=== PATIENT | male | born 1950 | race Caucasian/White ===

== ENCOUNTER 2018-04-09 06:18 | Inpatient (IN) | payer MEDICARE, OTHER, SELFPAY ==
[2018-04-05 13:47] VITALS: BMI 30.2
[2018-04-09] VITALS (16 sets, daily range): BP systolic 91–135; BP diastolic 54–86; PULSE 67–90; RESP 10–20; TEMP 36–36.8; O2SAT 94–100; BMI 30.2
[2018-04-09] MEDS: LACTATED RINGERS 1,000 ML 42 ML IV ×2 (07:03→10:00)
--- NOTE | 2018-04-09 07:12 | PC.NURSE ---
Day shift: Pt is not on AC unit at this time.
--- NOTE | 2018-04-09 07:30 | PM.PREOP ---
Pre-operative Note Interval Note History & Physical reviewed/Exam performed by Physician: Yes Changes to H&P: No
[2018-04-09] MEDS: CEFAZOLIN 2 GM/100 ML FROZ.PIGGY IV ×2 (07:51→16:30)
--- NOTE | 2018-04-09 08:25 | SUR.OPER ---
Right lateral on padded OR table. Head on pillow, gel axillary roll, pillow to support left arm. Legs flexed, pillows between legs, gel pad under down leg and ankle. Multiple passes of 3 inch cloth tape across shoulder, hip, upper and lower legs to secure patient on OR table.
[2018-04-09] MEDS: VANCOMYCIN 1,000 MG VIAL 1000 MG TOP (08:38)
[2018-04-09] MEDS: SODIUM CHLORIDE 0.9% 1,000 ML, GENTAMICIN 80 MG IRR ×2 (08:39→08:41)
[2018-04-09] MEDS: BUPIVACAINE 0.5% (PF) 4 ML, MORPHINE-PF 4 MG, BUTORPHANOL 1 MG, fentaNYL 100 MCG INJ (08:40)
[2018-04-09] MEDS: ACETAMINOPHEN IV 1,000 MG/100 ML VIAL 400 MG IV (09:10)
--- NOTE | 2018-04-09 09:34 | PM.OP.1 ---
Operative Date/Time/Diagnoses Date of procedure: 04/09/18 Time of procedure: 09:34 Pre-op diagnosis: Lumbar stenosis with radiculopathy History of lumbar laminectomy Post-op diagnosis: same Procedure & Clinicians Procedure: L1-2, L2-3, L3-4 anterior fusion with cages Same procedure as scheduled: Yes Indications: [age] year old male with intractable pain from stenosis. They had failed conservative management and requested operative intervention. Risks and benefits of surgery were discussed and appropriate consents were obtained. Surgeon: Francisco Javier Demarco [employer] Auditor: Ina Erazo Anesthesia Type: General Operative Notes Findings: None Closure Type: primary Specimen(s): none sent Applied: catheter Estimated Blood Loss (mL): 10 Procedure in detail: Patient was brought to the operating room and intubated on the table. Time-out was performed. They were then rolled over to the lateral decubitus position with the [id number]. The table was bent and they were taped down in the correct position. X-rays were taken to confirm a true AP and lateral. Preoperative antibiotics were given. The left flank was prepped and draped in standard sterile fashion. Using fluoroscopy, a 3 cm incision was made above the iliac crest. We bluntly dissected down with Metzenbaum scissors and split the 3 abdominal muscle layers. We dissected out the retroperitoneal space and using finger guidance, brought our 1st dilator down to the psoas muscle. Using neuromonitoring and fluoroscopy, we placed it through the psoas onto the L3-4 disc space in an anterior position and gradually pulled the dilator posteriorly along the disc space. We placed our guidewire and measured our depth for the retractor. We then dilated with the next 2 dilators and then placed our retractor over the dilators. Position was confirmed with fluoroscopy and the retractor was locked down to the bar. We opened up the retractor and checked with neuro monitoring. We then placed the jolie and again checked with neuro monitoring. The retractor was opened further and the ALL retractor was placed. An annulotomy was performed. We then performed a complete diskectomy with ring curette, pituitary, box osteotome. A Phillips was advanced across the disc space under fluoroscopy to release the lateral annulus on the opposite side. We then used sequentially larger trials and confirmed under fluoroscopy. An XLIF cage was packed with Osteocell bone graft and impacted into the L3-4 disc space with fluoroscopy for the anterior fusion at this level. The wound was irrigated. The retractor was closed down. The jolie was removed. We carefully removed the retractor with direct visualization to make sure there was no neurovascular or abdominal injury. We confirmed with x-ray. We then went up to the L2-3 level and performed the same procedure. We used dilation with monitoring, retractor, annulus release and diskectomy, trialing, and placing a cage packed with bone graft for the anterior fusion at L2-3. We carefully removed the retractor with direct visualization and then took x-rays. We then went up to the L1-2 level and performed the same procedure with dilation with monitoring, retractor, annulus release, diskectomy, trialing, and placing a cage packed with bone graft for the anterior fusion at L1-2. We carefully removed the retractor with direct visualization. Final x-rays were taken. The muscle fascia was closed, superficial tissue was closed. The skin was closed. A sterile dressing was placed. The patient was then rolled over, extubated, brought to the recovery room with no complications. Condition: stable Disposition: PACU Plan for aftercare: Inpatient. Up with physical therapy. Plan to return in 2 days for the extensive posterior portion of the surgery.
[2018-04-09] MEDS: HYDROMORPHONE 2 MG INJ 0.5 MG IV ×8 (09:46→10:25)
--- NOTE | 2018-04-09 10:03 | DI.RAD.S_ITS ---
PROCEDURE: XR LUMBAR SPINE 2-3V INDICATIONS: L1-2, L2-3, L3-4 XLIF TECHNIQUE: 2 views of the lumbar spine were acquired. COMPARISON: None. FINDINGS: 2 spot fluoroscopic intraoperative images demonstrating interbody cage grafts at 3 levels of the lumbar spine presumably L1-L2, L2-L3 and L3-L4 although definitive anatomic landmarks are not included on the images and therefore recommend correlation to real-time observations. Dictated by: Saul Pa M.D. on 04/09/2018 at 10:19 Approved by: Saul Pa M.D. on 04/09/2018 at 10:21
[2018-04-09] MEDS: LORazepam 2 MG/ML SYRINGE 0.5 MG IV ×2 (10:10→10:17)
[2018-04-09] MEDS: hydrOXYzine 50 MG/ML INJ 25 MG IM (10:30)
[2018-04-09] MEDS: fentaNYL 100 MCG/2 ML INJ 50 MCG IV (10:30)
--- NOTE | 2018-04-09 10:57 | PC.NURSE ---
Day shift: On unit at 1055 from PACU. Oriented to room and call light. HFR. Bed alarm on. Have cont o2 monitor in place due to many pain meds given in PACU. Dressing at op-site is CDI. SCD's in place. Tolerating ice chips. No nausea. Will continue to monitor.
[2018-04-09] MEDS: LACTATED RINGERS 1,000 ML 125 ML IV ×2 (11:36→19:02)
--- NOTE | 2018-04-09 12:37 | PC.NURSE ---
Day shift: Monitoring Pt's VS. They have been WNL. RT set up CPAP. Pt has been asleep since approx 1130. SpO2 95% 2L NC/CPAP. Call light in reach. Have not given PO med as Pt is asleep and has not eaten anything. Call light in reach and bed alarm is on.
[2018-04-09] MEDS: CELECOXIB 200 MG CAPSULE 400 MG PO (13:37)
[2018-04-09] MEDS: hydrOXYzine pamoate 25 MG CAPSULE PO ×2 (13:38→21:32)
[2018-04-09] MEDS: GABAPENTIN 300 MG CAPSULE 900 MG PO ×2 (13:38→21:25)
[2018-04-09] MEDS: OXYCODONE IR 5 MG TABLET 10 MG PO ×2 (13:43→21:24)
--- NOTE | 2018-04-09 14:18 | PT.IIE ---
Current Diagnoses Spinal stenosis, lumbar region with neurogenic claudication (04/09/18) Postlaminectomy syndrome, not elsewhere classified (04/09/18) Strain of muscle, fascia and tendon of lower back, subsequent encounter (04/09/18) Surgery Performed Operation Date: 04/09/18 07:45 Actual Procedures p L1-L3 Anterior Fusion - Francisco Javier Demarco MD Operation Date: 04/11/18 10:45 <No data on this case meets the specified criteria> Surgical History (Last Updated 04/05/18 @ 14:31 by Liana Olguin RN) H/O prostate biopsy (Acute) History of ankle surgery (Acute ~2006) History of biopsy (Acute 05/07/17) History of nasal surgery (Acute 05/07/17) History of vasectomy (Acute) Hx of hemorrhoidectomy (Acute) Hx of laminectomy (Acute 06/12/06) Status post left foot surgery (Acute) Medical History (Last Updated 04/05/18 @ 14:37 by Liana Olguin RN) Anxiety (Acute) Asthma (Acute) Cervical spinal stenosis (Acute) Cough (Acute) Depression (Acute) Essential hypertension (Acute) GERD (gastroesophageal reflux disease) (Acute) Hypercholesterolemia (Acute) Hyponatremia (Acute) Hyponatremia with decreased serum osmolality (Acute) Infection of lumbar spine (Acute) Left cuboid fracture (Acute) Nasal polyps (Acute) Neuropathy (Acute) Numbness (Acute) ESTEFANIA on CPAP (Acute) Prostatitis (Acute) Right tibial fracture (Acute) Spinal stenosis (Acute) Urethral stricture (Acute) Physical Therapy Inpatient Evaluation/Re-Eval M1 PT/OT-IP Prior Functional Status Start: 04/09/18 16:00 Freq: NEEDED Status: Active Protocol: Document 04/09/18 14:18 AB (Rec: 04/09/18 16:17 AB [id number]) Medical Review Prior Functional Status Medical History Reviewed Yes Communication able to make needs known Mobility and Gait staed that he is independent with all mobilities and ambulation without AD Social History Household Members significant other children Living Arrangements House Number of Floors (Floors) Two Floors Number of Stairs To Enter/Railing? lives in a split level house has 1/2 step to enter from the front and no steps from the back door; pt stated that he can stay on main level of the house if needed but prefers to be able to go upstairs where is room is. has 6 steps with L rail ascending +platform +5 steps R rail ascending to get to 2nd level. Home Environment Standard Height Toilet Walk in Shower Built-In Shower Seat Home Equipment Front Wheel Walker Crutches Hand Held Shower Grab Bars In Shower M2 PT-IP Current Condition Start: 04/09/18 16:00 Freq: NEEDED Status: Active Protocol: Document 04/09/18 14:18 AB (Rec: 04/09/18 16:17 AB [id number]) Physical Therapy Current Condition Current Condition Evaluation Date 04/09/18 Treatment Diagnosis s/p L1-L4 anterior fusion; difficulty in walking Onset Date 04/09/18 Precautions Lumbar Precautions Log Roll No Twisting Limit Bending Lifting Restriction of 10 lbs Gait Belt above Incisional Area M3 PT-IP Subjective Start: 04/09/18 16:00 Freq: NEEDED Status: Active Protocol: Document 04/09/18 14:18 AB (Rec: 04/09/18 16:17 AB [id number]) Subjective Physical Therapy Visit Type Type Initial Evaluation Visit Start Time 14:18 Visit Stop Time 15:10 Total Visit Minutes 52 Notes pt underwent L-L4 anterior fusion and will be having another back surgery in 2 days Number of MANAGER UNIVERSITY Visits 0 Physical Therapy Visit Comments Patient Comments pt agreeable to do PT but stated that he is drowsy from the meds Therapy Pain Assessment Pain When Pain Assessed At Rest Pain Present Pain Present Pain Reported Location Back Intensity 6 Scale Used Numeric (1 - 10) Pain Management Techniques Re-positioning Timing of Activity with Medications M4 PT-IP Mobility and Gait Start: 04/09/18 16:00 Freq: NEEDED Status: Active Protocol: Document 04/09/18 14:18 AB (Rec: 04/09/18 16:17 AB [id number]) PT-Bed Mobility Assessment Rolling Type of Rolling Log Rolling Level of Assist Minimal Assistance Supine to Sit Supine to Sit Minimal Assistance 1 Person Assistance Sit to Supine Sit to Supine Minimal Assistance 1 Person Assistance PT-Transfer Assessment Sit to and From Stand Sit to and from Stand Minimal Assistance Equipment Transfer Assistive Device Gait Belt Front Wheeled Walker Orthotic/Prosthetic Devices or Brace: No Comments Mobility Comments BP prior to mobility supine in bed: 109/68 BP after ambulation supine in bed: 122/75 Gait Assessment Gait Gait Assistance Required: Minimum Assistance Distance (Feet) 30 Able to Maintain Weight Bearing Status Yes During Gait Assistive Devices Assistive Device Gait Belt Front Wheeled Walker Orthotic/Prosthetic Devices or Brace: No Gait Deviations General Gait Pattern Antalgic Factors Limiting Gait Function Factors Limiting Gait Function Decreased Activity Tolerance Decreased Sensation Decreased Strength Limited Range of Motion Pain Poor Balance Poor Safety Awareness Comments Gait Comments pt can be impulsive. PT-Balance Assessment Sitting Balance and Reactions Static Sitting Balance Ability Good Dynamic Sitting Balance Ability Good Standing Balance and Reactions Static Standing Balance Ability Fair Dynamic Standing Balance Ability Fair Device Used FWW M5 PT-IP Objective Assessments Start: 04/09/18 16:00 Freq: NEEDED Status: Active Protocol: Document 04/09/18 14:18 AB (Rec: 04/09/18 16:17 AB [id number]) Orientation Orientation/Cognition Level of Alertness Alert Orientation Name Age Birthday Date Situation Language Function Ability No Deficits Noted Safety Awareness Decreased Safety Awareness Gross Range of Motion Lower Extremity ROM Assessment Within Functional Limits Strength Lower Extremity Strength Assessment Within Functional Limits Coordination Assessment Gross Coordination Gross Coordination WNL Sensation Assessment Sensation Gross Sensation Right LE Impaired Light Touch Impaired Sensation Description Numbness Comments Sensation Comments R lower leg slight numbness per pt Muscle Tone Muscle Tone WNL Yes M6 PT-IP Treatment Start: 04/09/18 16:00 Freq: NEEDED Status: Active Protocol: Document 04/09/18 14:18 AB (Rec: 04/09/18 16:17 AB [id number]) Physical Therapy Treatment Education Education Provided Precautions Weight Bearing Status Post-Op Packet Safety M7 PT-IP Assessment and Plan Start: 04/09/18 16:00 Freq: NEEDED Status: Active Protocol: Document 04/09/18 14:18 AB (Rec: 04/09/18 16:17 AB [id number]) PT Summary Assessment and Plan Potential Rehabilitation Potential Good Status of Condition at Evaluation Evolving Summary Impairments Pain ROM Strength Balance Coordination Sensation Tone Cognition Bed Mobility Transfers Gait Activity Tolerance Assessment Summary pt requiring min A with mobility. pt will have another back surgery in 2 days and d/c plan depending on level of assistance after that . pt stated that his son will be able to assist him at home . Goals Bed Mobility Goal Standby Assistance Transfer Goal Standby Assistance Front Wheeled Walker Gait Goal Standby Assistance Front Wheel Walker Gait Distance 150 Days to Meet Goals 10 Frequency of Treatment Frequency Of Treatment Twice a Day Treatment Plan Physical Therapy Treatment Plan Bed Mobility Training Transfer Training Gait Training Therapeutic Exercise Balance Retraining Post Op Education Discharge Planning Hot or Cold Pack Neuromuscular Re-ed Coordination Retraining Manual Therapy Recommendations To Nursing Amount of Assist Needed 1 Person Assist Discharge Recommendations PT Discharge Recommendations Home with 25/09 Assist SNF Rehab Other Discharge Recommendations SNF vs home with assistance depending on progress
[2018-04-09] MEDS: ALBUTEROL HFA 60 PUFF/8 GM INH INH (16:51)
--- NOTE | 2018-04-09 20:35 | PC.NURSE ---
At 1600 Finn was asleep, awoke quickly to voice & Ox3, appears anxious saying I think they gave me too many meds or something--I have been really sleepy. Speech is clear & fast, he jumps from one topic to another without finishing sentence or waiting for nurse to answer him. He is also impulsive & restless at times, needing cues for logrolling as nurse observed him trying to arch back/boost hips off bed. Logrolling technique explained multiple times. Bed controls reviewed. He complained this bed is the worst I have ever had. I told him that he was in our newest & best bed the hospital has. He reported pain 3 or 4 to lower back, able to relieve pain/pressure to back with repositioning. Pt asking nurse to reposition him several times between [id number]. Transfered to recliner for meal, he reported that walking & change of position really helped. Denied pain or nausea at mealtime. Since meal he has been transfered back to bed, now sound asleep. RA oxygen 95-98%, CPAP on for sleep. Left flank with opsite covering telfa, quarter sized serous yellow-filled blister observed under adhesive, blister is intact. CMS intact except for feet are numb sometimes but they always are. Denies pain to legs or feet. Wearing bilateral foot SCD's. He is now sleeping with CPAP on, O2 saturation 95-98% with continuous pulse ox monitoring in place. Call button in reach, alarm active for safety.
[2018-04-09] MEDS: CELECOXIB 200 MG CAPSULE PO (21:25)
[2018-04-09] MEDS: TERAZOSIN 5 MG CAPSULE 10 MG PO (21:25)
[2018-04-09] MEDS: SENNOSIDES 8.6 MG TABLET 17.2 MG PO (21:25)
[2018-04-09] MEDS: DOCUSATE 100 MG CAPSULE PO (21:26)
[2018-04-09] MEDS: FLUTICASONE 120 SPRAY/16 GM SPRAY.SUSP NASAL (21:26)
[2018-04-10] VITALS (7 sets, daily range): BP systolic 108–131; BP diastolic 59–85; PULSE 75–92; RESP 14–18; TEMP 36.6–37.1; O2SAT 94–124
[2018-04-10] MEDS: OXYCODONE IR 5 MG TABLET 10 MG PO ×4 (00:35→21:54)
[2018-04-10] MEDS: CEFAZOLIN 2 GM/100 ML FROZ.PIGGY IV (00:36)
[2018-04-10] MEDS: hydrOXYzine pamoate 25 MG CAPSULE PO ×2 (03:11→21:38)
[2018-04-10] MEDS: LACTATED RINGERS 1,000 ML 125 ML IV (03:12)
[2018-04-10 07:00] LABS: Blood Urea Nitrogen 20 mg/dL (9-20); Calcium 8.5 mg/dL (8.4-10.2); Carbon Dioxide 25 mmol/L (22-32); Chloride 102 mmol/L (98-107); Estimated Glomerular Filt Rate > 60.0 mL/min (>60); Glucose 125 mg/dL (80-110); HEMOLYSIS < 15 (0-50); Potassium 3.9 mmol/L (3.4-5.1); Sodium 136 mmol/L (137-145)
[2018-04-10 07:10] LABS: Hematocrit 34.1 % (41-53); Hemoglobin 11.7 g/dL (13.5-17.5)
--- NOTE | 2018-04-10 08:12 | PM.PNPO.1 ---
Subjective Date Patient Seen: 04/10/18 Time Patient Seen: 08:12 Interval history: He is actually doing quite well. A little bit more pain yesterday but today he is able to get up out of bed with assistance and walk. Right leg still bothering him. Exam Vital Signs (past 8 hours): - 04/10/18 00:37 04/10/18 02:45 Temperature 98.8 F Pulse Rate 92 H 92 H Respiratory Rate 16 Blood Pressure 131/85 124/59 L Pulse Oximetry 96 124 H Oxygen Delivery Method Room Air Oxygen Flow Rate 0 Const Orientation: alert and oriented x3 Back/Spine/Pelvis Other: 5/5 motor both lower extremities. Dressing CDI Objective Labs Result Diagrams: 04/10/18 05:25 04/10/18 05:25 Labs: Laboratory Results - last 24 hr 04/10/18 04/10/18 05:25 05:25 Hgb 11.7 L Hct 34.1 L Sodium 136 L Potassium 3.9 Chloride 102 Carbon Dioxide 25 BUN 20 Creatinine 1.00 Estimated GFR > 60.0 BUN/Creatinine Ratio 20.0 Glucose 125 H Calcium 8.5 Assessment & Plan Post-op Postoperative Procedures Operation Date: 04/09/18 07:45 Actual Procedures Side Surgeon p L1-L3 Anterior Fusion Francisco Javier Demarco MD he is doing well. Continue mobilize today with physical therapy. Removed the urinary catheter. NPO after midnight. Risks and benefits of surgery were again discussed and the consent form for tomorrow's 2nd half of the surgery was signed. We will plan on a revision L1 through S1 laminectomies with instrumented fusion and bone graft. Operation Date: 04/11/18 10:45 <No data on this case meets the specified criteria>
--- NOTE | 2018-04-10 09:30 | PT.IPTN ---
Current Diagnoses Spinal stenosis, lumbar region with neurogenic claudication (04/09/18) Postlaminectomy syndrome, not elsewhere classified (04/09/18) Strain of muscle, fascia and tendon of lower back, subsequent encounter (04/09/18) Surgery Performed Operation Date: 04/09/18 07:45 Actual Procedures p L1-L3 Anterior Fusion - Francisco Javier Demarco MD Operation Date: 04/11/18 10:45 <No data on this case meets the specified criteria> Physical Therapy Treatment Note M2 PT-IP Current Condition Start: 04/09/18 16:00 Freq: NEEDED Status: Active Protocol: Document 04/09/18 14:18 AB (Rec: 04/09/18 16:17 AB [id number]) Physical Therapy Current Condition Current Condition Evaluation Date 04/09/18 Treatment Diagnosis s/p L1-L4 anterior fusion; difficulty in walking Onset Date 04/09/18 Precautions Lumbar Precautions Log Roll No Twisting Limit Bending Lifting Restriction of 10 lbs Gait Belt above Incisional Area M3 PT-IP Subjective Start: 04/09/18 16:00 Freq: NEEDED Status: Active Protocol: Document 04/10/18 09:30 GGD (Rec: 04/10/18 10:04 GGD [id number]) Subjective Physical Therapy Visit Type Type Treatment Note Visit Start Time 09:05 Visit Stop Time 09:30 Total Visit Minutes 25 Number of SEQUINS WINDER Visits 1 Physical Therapy Visit Comments Patient Comments Pt states he want's to walk. Therapy Pain Assessment Pain When Pain Assessed At Rest Pain Present Pain Present Pain Reported Location Back Intensity 4 Scale Used Numeric (1 - 10) M4 PT-IP Mobility and Gait Start: 04/09/18 16:00 Freq: NEEDED Status: Active Protocol: Document 04/10/18 09:30 GGD (Rec: 04/10/18 10:04 GGD [id number]) PT-Transfer Assessment Sit to and From Stand Sit to and from Stand Contact Guard Assistance Use of Upper Extremities Equipment Transfer Assistive Device Gait Belt Front Wheeled Walker Orthotic/Prosthetic Devices or Brace: No Transfers Transfer Destination Chair Transfer Ability Level of Assist Contact Guard Assistance Gait Assessment Gait Gait Assistance Required: Contact Guard Assist Distance (Feet) 220 Able to Maintain Weight Bearing Status Yes During Gait Assistive Devices Assistive Device Gait Belt Front Wheeled Walker Orthotic/Prosthetic Devices or Brace: No Gait Deviations General Gait Pattern Antalgic Flexed Trunk Factors Limiting Gait Function Factors Limiting Gait Function Decreased Activity Tolerance Decreased Sensation Decreased Strength Limited Range of Motion Pain Poor Balance Poor Safety Awareness Comments Gait Comments Pt need min cues. M5 PT-IP Objective Assessments Start: 04/09/18 16:00 Freq: NEEDED Status: Active Protocol: Document 04/09/18 14:18 AB (Rec: 04/09/18 16:17 AB [id number]) Orientation Orientation/Cognition Level of Alertness Alert Orientation Name Age Birthday Date Situation Language Function Ability No Deficits Noted Safety Awareness Decreased Safety Awareness Gross Range of Motion Lower Extremity ROM Assessment Within Functional Limits Strength Lower Extremity Strength Assessment Within Functional Limits Coordination Assessment Gross Coordination Gross Coordination WNL Sensation Assessment Sensation Gross Sensation Right LE Impaired Light Touch Impaired Sensation Description Numbness Comments Sensation Comments R lower leg slight numbness per pt Muscle Tone Muscle Tone WNL Yes M6 PT-IP Treatment Start: 04/09/18 16:00 Freq: NEEDED Status: Active Protocol: Document 04/10/18 09:30 GGD (Rec: 04/10/18 10:04 GGD [id number]) Physical Therapy Treatment Education Education Provided Precautions M7 PT-IP Assessment and Plan Start: 04/09/18 16:00 Freq: NEEDED Status: Active Protocol: Document 04/10/18 09:30 GGD (Rec: 04/10/18 10:04 GGD [id number]) PT Summary Assessment and Plan Summary Assessment Summary Pt improving with mobility. He did have increase in pain with ambulation. He was safe and steady without LOB. He needed cues for hip hinge with sit <> stand. Pt plans to d/c home with son. Frequency of Treatment Frequency Of Treatment Twice a Day Treatment Plan Physical Therapy Treatment Plan Bed Mobility Training Transfer Training Gait Training Therapeutic Exercise Balance Retraining Post Op Education Discharge Planning Hot or Cold Pack Neuromuscular Re-ed Coordination Retraining Manual Therapy Recommendations To Nursing Amount of Assist Needed 1 Person Assist Discharge Recommendations PT Discharge Recommendations Home with / Assist SNF Rehab Other Discharge Recommendations SNF vs home with assistance depending on progress
[2018-04-10] MEDS: ALBUTEROL HFA 60 PUFF/8 GM INH INH ×2 (09:37→19:24)
[2018-04-10] MEDS: CELECOXIB 200 MG CAPSULE PO ×2 (09:53→21:35)
[2018-04-10] MEDS: FLUTICASONE 120 SPRAY/16 GM SPRAY.SUSP NASAL ×2 (09:53→21:36)
[2018-04-10] MEDS: DOCUSATE 100 MG CAPSULE PO ×2 (09:53→21:35)
[2018-04-10] MEDS: LISINOPRIL 10 MG TABLET PO (09:54)
[2018-04-10] MEDS: GABAPENTIN 300 MG CAPSULE 900 MG PO ×3 (09:54→21:36)
[2018-04-10] MEDS: LORATADINE 10 MG TABLET PO (09:55)
[2018-04-10] MEDS: NIACIN 500 MG TAB ER 1000 MG PO (09:55)
[2018-04-10] MEDS: MULTIVITAMIN 1 TABLET 1 TAB PO (09:55)
--- NOTE | 2018-04-10 11:22 | CM.DANOTE ---
DCP: Case received, EMR reviewed and met with patient. Introduced self and role. DCP template completed with information currently available. Patient is a 67 year old male who admitted yesterday morning to the care of the surgical team. PCP: Dr. Bolden. Payer: Medicare/ for Life. Patient came to hospital for lumbar surgery, having lumbar fusion. Had his first surgery yesterday, is to be having his second surgery tomorrow. Checked briefly on patient, was laying flat in bed. Called his home to speak to his family, since he was sleeping, and patient answered his phone. Stated, he was just resting. Gave patient name of this continuous pillowcase cutter and role. He was able to give some information on his baseline. He stated that he lives at home with his ex-, and 23 year old son. He also stated that his daughter, who lives in [facility], will be staying with him after surgery to help out as well. He stated that he does have a walker and crutches at home. At this time, he has to lay flat. Went into room later, and put name of this continuous pillowcase cutter on his white board in his room. P: DCP to follow closely. Patient is wanting to go home, but will depend on progress here in hospital after he has his second surgery. Patient has Medicare/, so if he does need detention, could qualify. Neelam Lott RN/News Videographer
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
--- NOTE | 2018-04-10 16:00 | OT.IP.TRT ---
Current Diagnoses Spinal stenosis, lumbar region with neurogenic claudication (04/09/18) Postlaminectomy syndrome, not elsewhere classified (04/09/18) Strain of muscle, fascia and tendon of lower back, subsequent encounter (04/09/18) Surgery Performed Operation Date: 04/09/18 07:45 Actual Procedures p L1-L3 Anterior Fusion - Francisco Javier Demarco MD Operation Date: 04/11/18 10:45 <No data on this case meets the specified criteria> Occupational Therapy Treatment Note M3 OT- IP Subjective and Pain Start: 04/10/18 17:24 Freq: Status: Active Protocol: Document 04/10/18 16:00 PJM (Rec: 04/10/18 17:25 PJM [id number]) OT- Subjective Occupational Therapy Visit Type Type Administrative Note Visit Start Time 16:00 Notes OT referral received. Will initiate OT evaluation in AM. No charge.
--- NOTE | 2018-04-10 17:08 | PT.IPTN ---
Current Diagnoses Spinal stenosis, lumbar region with neurogenic claudication (04/09/18) Postlaminectomy syndrome, not elsewhere classified (04/09/18) Strain of muscle, fascia and tendon of lower back, subsequent encounter (04/09/18) Surgery Performed Operation Date: 04/09/18 07:45 Actual Procedures p L1-L3 Anterior Fusion - Francisco Javier Demarco MD Operation Date: 04/11/18 10:45 <No data on this case meets the specified criteria> Physical Therapy Treatment Note M2 PT-IP Current Condition Start: 04/09/18 16:00 Freq: NEEDED Status: Active Protocol: Document 04/09/18 14:18 AB (Rec: 04/09/18 16:17 AB [id number]) Physical Therapy Current Condition Current Condition Evaluation Date 04/09/18 Treatment Diagnosis s/p L1-L4 anterior fusion; difficulty in walking Onset Date 04/09/18 Precautions Lumbar Precautions Log Roll No Twisting Limit Bending Lifting Restriction of 10 lbs Gait Belt above Incisional Area M3 PT-IP Subjective Start: 04/09/18 16:00 Freq: NEEDED Status: Active Protocol: Document 04/10/18 16:20 JONY (Rec: 04/10/18 17:08 [id number]) Subjective Physical Therapy Visit Type Type Treatment Note Visit Start Time 16:20 Visit Stop Time 17:01 Total Visit Minutes 41 Number of ASSET SPECIALIST Visits 2 Physical Therapy Visit Comments Patient Comments Pt states he want's to walk. M4 PT-IP Mobility and Gait Start: 04/09/18 16:00 Freq: NEEDED Status: Active Protocol: Document 04/10/18 16:20 JONY (Rec: 04/10/18 17:08 [id number]) PT-Transfer Assessment Sit to and From Stand Sit to and from Stand Standby Assistance Use of Upper Extremities Equipment Transfer Assistive Device Gait Belt Front Wheeled Walker Orthotic/Prosthetic Devices or Brace: No Transfers Transfer Destination Bed Transfer Ability Level of Assist Standby Assistance Comments Mobility Comments Pt SBA for all bed mobility and transfers. Able to follow precautions and lift legs into bed w/o assist. Gait Assessment Gait Gait Assistance Required: Contact Guard Assist Distance (Feet) 330 Able to Maintain Weight Bearing Status Yes During Gait Assistive Devices Orthotic/Prosthetic Devices or Brace: No Gait Deviations General Gait Pattern Decreased Stride Length Decreased Feet Clearance Factors Limiting Gait Function Factors Limiting Gait Function Decreased Activity Tolerance Decreased Sensation Decreased Strength Limited Range of Motion Pain Poor Balance Poor Safety Awareness Comments Gait Comments Pt ambulated in hallway CGA- SBA demonstrating relaxed pacing and stability. Proper positioning and usage of FWW. M5 PT-IP Objective Assessments Start: 04/09/18 16:00 Freq: NEEDED Status: Active Protocol: Document 04/09/18 14:18 AB (Rec: 04/09/18 16:17 AB [id number]) Orientation Orientation/Cognition Level of Alertness Alert Orientation Name Age Birthday Date Situation Language Function Ability No Deficits Noted Safety Awareness Decreased Safety Awareness Gross Range of Motion Lower Extremity ROM Assessment Within Functional Limits Strength Lower Extremity Strength Assessment Within Functional Limits Coordination Assessment Gross Coordination Gross Coordination WNL Sensation Assessment Sensation Gross Sensation Right LE Impaired Light Touch Impaired Sensation Description Numbness Comments Sensation Comments R lower leg slight numbness per pt Muscle Tone Muscle Tone WNL Yes M6 PT-IP Treatment Start: 04/09/18 16:00 Freq: NEEDED Status: Active Protocol: Document 04/10/18 16:20 LJ (Rec: 04/10/18 17:08 LJ [id number]) Physical Therapy Treatment Education Education Provided Precautions M7 PT-IP Assessment and Plan Start: 04/09/18 16:00 Freq: NEEDED Status: Active Protocol: Document 04/10/18 16:20 LJ (Rec: 04/10/18 17:08 LJ [id number]) PT Summary Assessment and Plan Summary Assessment Summary Pt good with ambulation. States he feels better after walking and stretching his legs. Safe and steady w/o LOB or pain. Attempetd several steps w/o walker and had no LOB or pain issues. Frequency of Treatment Frequency Of Treatment Twice a Day Treatment Plan Physical Therapy Treatment Plan Bed Mobility Training Transfer Training Gait Training Therapeutic Exercise Balance Retraining Post Op Education Discharge Planning Hot or Cold Pack Neuromuscular Re-ed Coordination Retraining Manual Therapy Recommendations To Nursing Amount of Assist Needed 1 Person Assist Discharge Recommendations PT Discharge Recommendations Home with 24/ Assist SNF Rehab Other Discharge Recommendations SNF vs home with assistance depending on progress
--- NOTE | 2018-04-10 17:50 | PC.NURSE ---
Addendum entered by Evelia Santacruz R.N. 04/10/18 22:50: Pt resting quietly at intervals this evening. Med at 0 for discomfort w/good relief. NPO after NM for surgery in am. Call light w/in [facility], bed alarm on for pt safety. Continue w/plan of care. Original Note: Pt up in chair. Denies discomfort a this time, Lungs clear, SpO2 97% RA. Dsg CDI. Stable post op course. Will be NPO at NM for surgery in am. Call light w/in [facility], bed alarm on for pt safety.
[2018-04-10] MEDS: PANTOPRAZOLE 20 MG TABLET PO (21:37)
[2018-04-10] MEDS: SENNOSIDES 8.6 MG TABLET 17.2 MG PO (21:37)
[2018-04-10] MEDS: TERAZOSIN 5 MG CAPSULE 10 MG PO (21:38)
[2018-04-11] VITALS (13 sets, daily range): BP systolic 77–133; BP diastolic 50–81; PULSE 85–91; RESP 12–20; TEMP 36.4–36.9; O2SAT 93–98; BMI 30.2
--- NOTE | 2018-04-11 | DI.RAD.S_ITS ---
PROCEDURE: XR LUMBAR SPINE 2-3V INDICATIONS: L1-S1 TLIF TECHNIQUE: Fluoroscopic images were obtained during an operative procedure and submitted for interpretation following the completion of the procedure. COMPARISON: [facility], , XR LUMBAR SPINE 2-3V, 04/09/2018, 8:16. FINDINGS: These fluoroscopic images were performed for intraoperative localization. On these images, lumbosacral postoperative hardware has been placed. Please correlate with intraoperative findings. IMPRESSION: Normal intraoperative examination. Dictated by: Po Lei M.D. on 04/11/2018 at 17:04 Approved by: Po Lei M.D. on 04/11/2018 at 17:05
[2018-04-11] MEDS: HYDROMORPHONE 1 MG INJ 0.2 MG IV (06:52)
--- NOTE | 2018-04-11 07:24 | PM.PNPO.1 ---
Subjective Date Patient Seen: 04/11/18 Time Patient Seen: 07:24 Interval history: Sore in the back but manageable. He has had some right leg symptoms mildly flare up again. Exam Vital Signs (past 8 hours): - 04/10/18 23:40 04/11/18 05:10 Temperature 98.6 F 98.4 F Pulse Rate 89 89 Respiratory Rate 16 17 Blood Pressure 127/73 107/74 Pulse Oximetry 97 97 Oxygen Delivery Method CPAP Oxygen Flow Rate 0 Const Orientation: alert and oriented x3 Back/Spine/Pelvis Other: Dressing clean dry intact. 5/5 motor both lower extremities Objective Labs Result Diagrams: 04/10/18 05:25 04/10/18 05:25 Assessment & Plan Post-op Postoperative Procedures Operation Date: 04/09/18 07:45 Actual Procedures Side Surgeon p L1-L3 Anterior Fusion Francisco Javier Demarco MD is doing well after his 1st part of a staged procedure. Return to the operating room for stage II later today. Operation Date: 04/11/18 10:45 <No data on this case meets the specified criteria>
--- NOTE | 2018-04-11 09:05 | OT.IP.TRT ---
Current Diagnoses Spinal stenosis, lumbar region with neurogenic claudication (04/09/18) Postlaminectomy syndrome, not elsewhere classified (04/09/18) Strain of muscle, fascia and tendon of lower back, subsequent encounter (04/09/18) Surgery Performed Operation Date: 04/09/18 07:45 Actual Procedures p L1-L3 Anterior Fusion - Francisco Javier Demarco MD Operation Date: 04/11/18 10:45 <No data on this case meets the specified criteria> Occupational Therapy Treatment Note M3 OT- IP Subjective and Pain Start: 04/10/18 17:24 Freq: Status: Active Protocol: Document 04/11/18 09:05 [facility] (Rec: 04/11/18 09:05 [facility] [id number]) OT- Subjective Occupational Therapy Visit Type Type Administrative Note Notes Pt to have second back surgery today, therefore to see pt tomorrow for OT eval.
--- NOTE | 2018-04-11 09:15 | PC.NURSE ---
AM NOTE - pt up to chair, npo status explained, oral care provided, pt talkative, pain controlled with earlier iv dilaudid, ra 96%, hr irreg 82, l flank dsg cdi, student nurse assisted out chair w/fww, ambul br, voided, ret to bed after ambul [facility], gait steady. tool builder arrived 0915 , cpap packed and taken, discused youth care professional cefazolin to be admin.
[2018-04-11] MEDS: LACTATED RINGERS 1,000 ML 42 ML IV ×2 (09:23→12:12)
[2018-04-11] MEDS: ALBUTEROL HFA 60 PUFF/8 GM INH INH (10:30)
--- NOTE | 2018-04-11 10:38 | PM.PREOP ---
Pre-operative Note Interval Note History & Physical reviewed/Exam performed by Physician: Yes Changes to H&P: No
[2018-04-11] MEDS: CEFAZOLIN 2 GM/100 ML FROZ.PIGGY IV ×2 (11:15→15:24)
--- NOTE | 2018-04-11 11:51 | SUR.OPER ---
Prone on spine table, head in foam head support, padded chest and pelvic supports, gel pad at knees, lower legs supported by pillows; nipples, genitalia and toes free of pressure, arms secured on foam padded arm boards at <90 degrees abduction. Tape over blanket at thigh secured to table.
[2018-04-11] MEDS: VANCOMYCIN 1,000 MG VIAL 1000 MG TOP (12:18)
[2018-04-11] MEDS: SODIUM CHLORIDE 0.9% 1,000 ML, GENTAMICIN 80 MG IRR (12:19)
[2018-04-11] MEDS: THROMBIN (BOVINE) 5,000 UNIT VIAL 5000 UNIT TOP (13:31)
[2018-04-11] MEDS: BUPIVACAINE 0.5% (PF) 4 ML, MORPHINE-PF 4 MG, BUTORPHANOL 1 MG, fentaNYL 100 MCG INJ (15:12)
--- NOTE | 2018-04-11 16:55 | PT.IPTN ---
Current Diagnoses Spinal stenosis, lumbar region with neurogenic claudication (04/09/18) Postlaminectomy syndrome, not elsewhere classified (04/09/18) Strain of muscle, fascia and tendon of lower back, subsequent encounter (04/09/18) Surgery Performed Operation Date: 04/09/18 07:45 Actual Procedures p L1-L3 Anterior Fusion - Francisco Javier Demarco MD Operation Date: 04/11/18 10:45 Actual Procedures p L1-S1, redo laminectomies & Instru posterior fusion w/bone graft(Not Applicable) - Francisco Javier Demarco MD Physical Therapy Treatment Note M2 PT-IP Current Condition Start: 04/09/18 16:00 Freq: NEEDED Status: Active Protocol: Document 04/09/18 14:18 AB (Rec: 04/09/18 16:17 AB [id number]) Physical Therapy Current Condition Current Condition Evaluation Date 04/09/18 Treatment Diagnosis s/p L1-L4 anterior fusion; difficulty in walking Onset Date 04/09/18 Precautions Lumbar Precautions Log Roll No Twisting Limit Bending Lifting Restriction of 10 lbs Gait Belt above Incisional Area M3 PT-IP Subjective Start: 04/09/18 16:00 Freq: NEEDED Status: Active Protocol: Document 04/11/18 16:51 AB (Rec: 04/11/18 16:55 AB [id number]) Subjective Physical Therapy Visit Type Notes pt went for another back surgery today and is still not up on the acute floor. will f/u tomorrow.
--- NOTE | 2018-04-11 17:25 | PM.OP.1 ---
Operative Date/Time/Diagnoses Date of procedure: 04/11/18 Time of procedure: 17:25 Pre-op diagnosis: Lumbar stenosis with radiculopathy History of lumbar laminectomy Post-op diagnosis: same Procedure & Clinicians Procedure: L1-2 laminectomy L2-3, L3-4, L4-5, L4-5 revision laminotomies and foraminotomies on the right side Use of microscope L1-2, L2-3, L3-4 posterior fusion L5S1 TLIF (post/post innerbody fusion) L1 through S1 screws Iliac crest bone graft Placement of an epidural catheter Same procedure as scheduled: Yes Indications: 67-year-old male with intractable pain from stenosis. He had already gone through stage I of his 2 day surgery and the plan was to return today for the 2nd half. Risks and benefits of surgery were again discussed and appropriate consent obtained. Surgeon: Francisco Javier Demarco Registered Nurse Cardiac Telemetry: Ina Erazo Anesthesia Type: General Operative Notes Findings: None Closure Type: primary Specimen(s): none sent Prosthetic devices, grafts, tissues, transplants, or devices: Nuvasive open and MAS Reline screws Globus Rise cage Applied: catheter Estimated Blood Loss (mL): 800 Procedure in detail: The patient was brought to the operating room and intubated on the table. A time-out was performed. They were then rolled over to the well-padded Ricky table in the prone position. Preoperative antibiotics were given. The back was prepped and draped in the standard sterile fashion.A 20 cm cm incision was made in the midline utilizing his previous incision. We dissected down the right sided paraspinals to expose the lamina out over the facets to the transverse processes. A marker was placed to confirm positioning. Care was taken to protect his previous laminotomy sites during the dissection. A bur was used to decorticate the junction of the transverse process and facet. We then advanced a gear shifter down the right pedicle of L1 using neuromonitoring. We then checked with a ball probe for a floor and four epperson. We then tapped and again checked with a ball probe. A bur was used to decorticate the transverse process and the L1 screw was placed into the pedicle. The same technique was used to place screws in the L2, L3, L4, L5, and S1 pedicles on the right. Position was confirmed with x-ray. We brought in the microscope. Using a combination of bur and Kerrison rongeur a revision laminectomy was performed from the right side at L5-S1. This was completely scarred over from his previous surgery. He actually had no residual ligamentum flavum through any of this. He had a large facet cyst at the L5-S1 joint that had completely adhesed to the dura and around the exiting nerve root This required a facetectomy to open up the neural foramen. There were very large white granules along the cystic structure. This may have been from an epidural injection but tissue was sent to pathology. This was separate and distinct from a standard approach for the posterior interbody fusion because of the revision nature which added at least 50% more time. We then began the TLIF prep. A complete facetectomy was performed on this side at L5-S1. The dura was densely adhesed to the disc. This took a large amount of time and careful dissection to slowly mobilize it until we were to the midline. The disc was prepped with bipolar and then an annulotomy was performed. We performed a diskectomy using a combination of paddles, myranda, Kerrison, and curettes. We distracted the disc using a paddle and locked the retractor in an open position. We then filled the disc space with Osteocel bone graft. We then placed the globus Rise cage under fluoroscopy and then filled this in with more bone graft. This completed the posterior interbody fusion portion of the TLIF at L5-S1. We then began working cephalad. Another revision laminotomy was performed at L4-5. Again there was no ligamentum at this level and it was scarred in to all of the tissue. We used an osteotome to perform a facetectomy. We continue working with Kerrisons until we finally had opened up and exposed the entire foramen and the nerve root was free. We then went up to L3-4. Again this was a revision laminotomy with a large amount of scar tissue. There was significant hypertrophy of the facet joint that had to be removed. We cleared out the neural foramen after removing a large part of the facet. We then went up to L2-3. Again this was a revision laminotomy with large amounts of scar tissue. We cleared up the facet joint and cleared out the neural foramen. We then went up to L1-2. This was a primary laminectomy with foraminotomy. We carefully went across the opposite side and cleared with a small Kerrison. This was the only level that had any ligamentum flavum in the entire procedure. He did have significant bony oozing as well as epidural vein oozing throughout this. We did slow it down with FloSeal but this accounted for the majority of his blood loss during the long surgery. The wound was then copiously irrigated. A red was measured and placed and locked into all of the screws. A small stab incision was made over the PSIS. We used a Jamshidi needle to aspirate several mL of bone marrow from the pelvis. This was mixed with the remaining Osteocell and combined with all of the locally harvested bone graft and placed in the posterolateral gutter for the posterior fusion of the TLIF at L5-S1 as well as the posterolateral fusion at L1-2, L23, and L34. L45 had already autofused so did not need further posterior fusion. An epidural catheter was then placed in the spinal canal by carefully depressing the dura and advancing it 6 cm cephalad under the remaining lamina without resistance. The muscle fascia was closed. The catheter was then injected with a solution containing 4 mL of 0.5% Marcaine, 1 mg Stadol, 4 mg Duramorph, and 100 mcg of fentanyl. This was injected without resistance and the catheter was pulled. We then used fluoroscopy and made another 20 cm incision to the left. We used Bovie to come down to and split the fascia. We then percutaneously placed Jamshidi needles down the pedicles of L1 through S1 on the left. This was done with neural monitoring and fluoroscopy. We then switched these out guidewires. We then tapped and placed our pedicle screws. The screw was too high up on top of the hypertrophic facet at L4 and we backed up the screw. We then opened up the soft tissue over this and used the bur to decorticate and remove a large part of the hypertrophic facet. We then were able to put the screw back down at a much better location. We then measured and placed a red and locked down. Final x-rays were taken. The wounds were irrigated. The fascia was closed on the left side. Vancomycin powder was placed in the wounds. The superficial and skin were closed. A sterile dressing was placed. The patient was then rolled over extubated and brought to recovery room without complications. Complications: none Condition: stable Disposition: PACU Plan for aftercare: Inpatient. Up with physical therapy.
[2018-04-11] MEDS: HYDROMORPHONE 2 MG INJ 0.5 MG IV ×4 (17:45→18:00)
[2018-04-11] MEDS: LORazepam 2 MG/ML SYRINGE 0.5 MG IV ×2 (17:48→17:54)
[2018-04-11] MEDS: fentaNYL 100 MCG/2 ML INJ 50 MCG IV (18:05)
[2018-04-11] MEDS: LACTATED RINGERS 1,000 ML 125 ML IV (19:15)
[2018-04-11] MEDS: CELECOXIB 200 MG CAPSULE 400 MG PO (21:13)
[2018-04-11] MEDS: DOCUSATE 100 MG CAPSULE PO (21:14)
[2018-04-11] MEDS: FLUTICASONE 120 SPRAY/16 GM SPRAY.SUSP NASAL (21:14)
[2018-04-11] MEDS: GABAPENTIN 300 MG CAPSULE 900 MG PO (21:14)
[2018-04-11] MEDS: SENNOSIDES 8.6 MG TABLET 17.2 MG PO (21:15)
[2018-04-11] MEDS: ASPIRIN EC 81 MG TABLET PO (21:15)
[2018-04-11] MEDS: PANTOPRAZOLE 20 MG TABLET PO (21:16)
[2018-04-11] MEDS: TERAZOSIN 5 MG CAPSULE 10 MG PO (21:16)
[2018-04-11] MEDS: OXYCODONE IR 5 MG TABLET 10 MG PO (21:22)
--- NOTE | 2018-04-11 21:41 | PC.NURSE ---
LEFT EYE BOTHERING PATIENT,I WAS TOLD BY CORD CUTTER, HE COULD HAVE SM.COTTON IN EYE FROM SMALL PEACE TO EYE IN SURGERY.PATIENTS EYE RINSED WITH NS,STATES FEELS BETTER, BUT THINKS HE HAS GLUE IN EYE NOW. FLUSHED WITH NS AGAIN.
[2018-04-12] VITALS (12 sets, daily range): BP systolic 93–106; BP diastolic 54–66; PULSE 90–106; RESP 16–20; TEMP 36.9–38.9; O2SAT 91–100
[2018-04-12] MEDS: CEFAZOLIN 2 GM/100 ML FROZ.PIGGY IV ×2 (00:13→08:57)
[2018-04-12] MEDS: OXYCODONE IR 5 MG TABLET PO ×3 (00:40→14:56)
[2018-04-12] MEDS: diazePAM 5 MG TABLET 10 MG PO (00:40)
[2018-04-12] MEDS: LACTATED RINGERS 1,000 ML 125 ML IV (03:46)
--- NOTE | 2018-04-12 03:56 | PC.NURSE ---
Pt. disoriented to time of the day upon waking up in the middle of his sleep but does reorient easily.
[2018-04-12] MEDS: ALBUTEROL 2.5 MG/3 ML NEB (ADULT) INH (05:05)
[2018-04-12] MEDS: ACETAMINOPHEN 325 MG TABLET PO (05:17)
--- NOTE | 2018-04-12 05:38 | PC.NURSE ---
Pt. drowsy, forgetful at times, get his day and night mixed up but reorients easily. Pt. has a fever of 102F oral, Dr. Demarco called and got order for Tylenol 500-1000mg q6h prn fever however the hospital only carries 325 mg so pt. given 3 tabs of 325 mg tylenol oral. Cool wet washcloth applied to pts. forehead while awaiting the tylenol order to be verified by pharmacy. Also got order for albuterol neb x1 which was given by RT. Pt. denies shortness of breath, lungs is CTA, IS use up to 2000 ml. Encourage pt. to take CDB and IS use to prevent post op lung complications. Pt's. pain is minimal bet. 2-5/10 mostly his chronic neck and leg pain, low back is only 2/10. Back drsg. has a small amt. of old dried sanguinous drainage, HO drain is functioning and is intact. Will continue to monitor.
--- NOTE | 2018-04-12 06:27 | PC.NURSE ---
Pts. temp came down to 99.2 F oral. Pt. currently using his IS.
--- NOTE | 2018-04-12 07:22 | PM.PNPO.1 ---
Subjective Date Patient Seen: 04/12/18 Time Patient Seen: 07:22 Interval history: Pain is about a 4 to 6/10. No leg pain but still numbness on the right leg. He had a fever of 102? this morning but this resolved with Tylenol and a nebulizer. He reports a dry cough and choking feeling in his throat. This happens with his allergies regularly and was much better after he was able to sit up and cough it out. Exam Vital Signs (past 8 hours): - 04/12/18 00:16 04/12/18 04:17 04/12/18 05:06 Temperature 100.7 F H 102.0 F H Pulse Rate 103 H 101 H 100 H Respiratory Rate 19 20 20 Blood Pressure 105/63 106/54 L Pulse Oximetry 98 93 95 04/12/18 06:26 04/12/18 06:30 Temperature 99.2 F 99.2 F Pulse Rate Respiratory Rate Blood Pressure Pulse Oximetry Oxygen Delivery Method Room Air Oxygen Flow Rate 0 Const Orientation: alert and oriented x3 Back/Spine/Pelvis Other: Dressing moderate dry drainage on the inferior aspect. 5/5 motor both lower extremities. Objective Labs Result Diagrams: 04/10/18 05:25 04/10/18 05:25 Assessment & Plan Post-op Postoperative Procedures Operation Date: 04/09/18 07:45 Actual Procedures Side Surgeon p L1-L3 Anterior Fusion Francisco Javier Demarco MD He is doing well. Fever most likely respiratory in origin and has now resolved. Mobilize with physical therapy. Today's labs are pending. Operation Date: 04/11/18 10:45 Actual Procedures Side Surgeon p L1-S1, redo laminectomies & Instru posterior fusion w/bone graft Not Applicable Francisco Javier Demarco MD
[2018-04-12 07:30] LABS: Hematocrit 26.3 % (41-53); Hemoglobin 9.2 g/dL (13.5-17.5)
[2018-04-12 07:43] LABS: BUN Creatinine Ratio 21.8 (6-22); Blood Urea Nitrogen 24 mg/dL (9-20); Calcium 8.3 mg/dL (8.4-10.2); Carbon Dioxide 27 mmol/L (22-32); Chloride 101 mmol/L (98-107); Estimated Glomerular Filt Rate > 60.0 mL/min (>60); Glucose 109 mg/dL (80-110); HEMOLYSIS < 15 (0-50); Potassium 4.4 mmol/L (3.4-5.1); Sodium 134 mmol/L (137-145)
[2018-04-12] MEDS: MULTIVITAMIN 1 TABLET 1 TAB PO (08:57)
[2018-04-12] MEDS: GABAPENTIN 300 MG CAPSULE 900 MG PO ×3 (08:57→20:38)
[2018-04-12] MEDS: CELECOXIB 200 MG CAPSULE PO ×2 (08:57→20:37)
[2018-04-12] MEDS: LORATADINE 10 MG TABLET PO (08:57)
[2018-04-12] MEDS: FLUTICASONE 120 SPRAY/16 GM SPRAY.SUSP NASAL ×2 (08:58→20:38)
[2018-04-12] MEDS: DOCUSATE 100 MG CAPSULE PO ×2 (08:58→20:38)
[2018-04-12] MEDS: NIACIN 500 MG TAB ER 1000 MG PO (08:59)
[2018-04-12] MEDS: ALBUTEROL HFA 60 PUFF/8 GM INH INH ×2 (09:00→20:57)
--- NOTE | 2018-04-12 11:05 | PT.IPTN ---
Current Diagnoses Spinal stenosis, lumbar region with neurogenic claudication (04/09/18) Postlaminectomy syndrome, not elsewhere classified (04/09/18) Strain of muscle, fascia and tendon of lower back, subsequent encounter (04/09/18) Surgery Performed Operation Date: 04/09/18 07:45 Actual Procedures p L1-L3 Anterior Fusion - Francisco Javier Demarco MD Operation Date: 04/11/18 10:45 Actual Procedures p L1-S1, redo laminectomies & Instru posterior fusion w/bone graft(Not Applicable) - Francisco Javier Demarco MD Physical Therapy Treatment Note M2 PT-IP Current Condition Start: 04/09/18 16:00 Freq: NEEDED Status: Active Protocol: Document 04/12/18 09:30 HH (Rec: 04/12/18 11:05 [email or web address]) Physical Therapy Current Condition Current Condition Evaluation Date 04/12/18 Treatment Diagnosis L1-L4 posterior fusion, L5S1 TLIF Onset Date 04/12/18 Precautions Lumbar Precautions Log Roll No Twisting Limit Bending Lifting Restriction of 10 lbs Gait Belt above Incisional Area Weight Bearing Status Weight Bearing Status Weight Bear as Tolerated M3 PT-IP Subjective Start: 04/09/18 16:00 Freq: NEEDED Status: Active Protocol: Document 04/12/18 09:30 HH (Rec: 04/12/18 11:05 [email or web address]) Subjective Physical Therapy Visit Type Type Progress Note Visit Start Time 09:30 Visit Stop Time 10:15 Total Visit Minutes 45 Notes Pt was in his 2 nd surgery for 6 hours yesterday. Pt is now post op day 1 posterior fusion L1-L4. Pt got up to chair with nursing staff 1pa this am Number of BLOOD BANK CREDIT CLERK Visits 0 Physical Therapy Visit Comments Patient Comments My pain is 6/10 for a minute and no pain for the next min. Its been on and off. And i have trouble clearing my throat since this organizational effectiveness consultant. Therapy Pain Assessment Pain When Pain Assessed At Rest Pain Present Pain Present Pain Reported Location Back Intensity 6 Scale Used Numeric (1 - 10) Pain Management Techniques Apply Cold Re-positioning Timing of Activity with Medications M4 PT-IP Mobility and Gait Start: 04/09/18 16:00 Freq: NEEDED Status: Active Protocol: Document 04/12/18 09:30 HH (Rec: 04/12/18 11:05 [email or web address]) PT-Bed Mobility Assessment Rolling Type of Rolling Log Rolling Level of Assist Contact Guard Assistance Supine to Sit Supine to Sit Contact Guard Assistance 1 Person Assistance Sit to Supine Sit to Supine Contact Guard Assistance 1 Person Assistance PT-Transfer Assessment Sit to and From Stand Sit to and from Stand Standby Assistance Use of Upper Extremities Equipment Transfer Assistive Device Gait Belt Front Wheeled Walker Orthotic/Prosthetic Devices or Brace: No Transfers Transfer Destination Bed Chair Transfer Ability Level of Assist Contact Guard Assistance 1 Person Assistance Comments Mobility Comments Pt was able to recall all precautions upon assessment. Pt required CGA for all bed mobility and transfer due to his increased pain and impulsive behaviors. Pt often states Im not sure how well i could do but i might need help suddenly. Gait Assessment Gait Gait Assistance Required: Contact Guard Assist 1 Person Assist Distance (Feet) 80 Able to Maintain Weight Bearing Status Yes During Gait Assistive Devices Assistive Device Gait Belt Front Wheeled Walker Orthotic/Prosthetic Devices or Brace: No Gait Deviations General Gait Pattern Decreased Stride Length Decreased Feet Clearance Step-to Gait Factors Limiting Gait Function Factors Limiting Gait Function Decreased Activity Tolerance Decreased Sensation Decreased Strength Limited Range of Motion Pain Poor Balance Poor Safety Awareness Comments Gait Comments Pt ambualted with decreased stride length and feet clearance, along with slight step to gait pattern. Pt presented anterior trunk lean and requires max cues to facilitate upright position. Pt requested to sit on w/c after 80 feet and return back to bed. /Pt often states My pain is pretty bad but i want to keep going and i also had couple epidsodes of syncope before too. I could pass out anytime. Stair Climbing Assessment Comments Stair Climbing Comments Did not attempt due to fatigue PT-Balance Assessment Sitting Balance and Reactions Static Sitting Balance Ability Good Dynamic Sitting Balance Ability Good Standing Balance and Reactions Static Standing Balance Ability Fair Dynamic Standing Balance Ability Fair Device Used FWW M5 PT-IP Objective Assessments Start: 04/09/18 16:00 Freq: NEEDED Status: Active Protocol: Document 04/12/18 09:30 (Rec: 04/12/18 11:05 [email or web address]) Orientation Orientation/Cognition Level of Alertness Alert Orientation Name Age Birthday Date Situation Language Function Ability No Deficits Noted Safety Awareness Decreased Safety Awareness Gross Range of Motion Lower Extremity ROM Assessment Within Functional Limits Strength Lower Extremity Strength Assessment Within Functional Limits Coordination Assessment Gross Coordination Gross Coordination WNL Sensation Assessment Sensation Gross Sensation WNL Muscle Tone Muscle Tone WNL Yes M6 PT-IP Treatment Start: 04/09/18 16:00 Freq: NEEDED Status: Active Protocol: Document 04/12/18 09:30 HH (Rec: 04/12/18 11:05 HH [email or web address]) Physical Therapy Treatment Education Education Provided Precautions Weight Bearing Status Post-Op Packet Safety M7 PT-IP Assessment and Plan Start: 04/09/18 16:00 Freq: NEEDED Status: Active Protocol: Document 04/12/18 09:30 HH (Rec: 04/12/18 11:05 HH [email or web address]) PT Summary Assessment and Plan Potential Rehabilitation Potential Good Status of Condition at Evaluation Evolving Summary Impairments Pain ROM Strength Balance Coordination Sensation Tone Cognition Bed Mobility Transfers Gait Activity Tolerance Assessment Summary Pt presented slight decline in overall mobility due to 2nd surgrey but no significant changes noted. Pt amb with FWW and CGA today for approx 80 feet today. Pt was very anxious and impulsive the entire time and required constant cues for postural correction during gait training. Communicated with SAE Dominguez, who will contact with Dr. Demarco for prescribing anxiety medication. Goals Bed Mobility Goal Standby Assistance Transfer Goal Standby Assistance Front Wheeled Walker Gait Goal Standby Assistance Front Wheel Walker Gait Distance 300 Other Goals able to clear 6 steps with L rail Days to Meet Goals 10 Frequency of Treatment Frequency Of Treatment Twice a Day Treatment Plan Physical Therapy Treatment Plan Bed Mobility Training Transfer Training Gait Training Therapeutic Exercise Balance Retraining Post Op Education Discharge Planning Hot or Cold Pack Neuromuscular Re-ed Coordination Retraining Manual Therapy Recommendations To Nursing Amount of Assist Needed 1 Person Assist Discharge Recommendations PT Discharge Recommendations Home with / Assist SNF Rehab Other Discharge Recommendations SNF vs home with assistance depending on progress
[2018-04-12] MEDS: SODIUM CHLORIDE 0.9% 1,000 ML 125 ML IV ×2 (12:15→20:36)
--- NOTE | 2018-04-12 14:11 | OT.IP.EVAL ---
Current Diagnoses Spinal stenosis, lumbar region with neurogenic claudication (04/09/18) Postlaminectomy syndrome, not elsewhere classified (04/09/18) Strain of muscle, fascia and tendon of lower back, subsequent encounter (04/09/18) Surgery Performed Operation Date: 04/09/18 07:45 Actual Procedures p L1-L3 Anterior Fusion - Francisco Javier Demarco MD Operation Date: 04/11/18 10:45 Actual Procedures p L1-S1, redo laminectomies & Instru posterior fusion w/bone graft(Not Applicable) - Francisco Javier Demarco MD Past Medical History (Last Updated 04/05/18 @ 14:37 by Liana Olguin, RN) Anxiety (Acute) Asthma (Acute) Cervical spinal stenosis (Acute) Cough (Acute) Depression (Acute) Essential hypertension (Acute) GERD (gastroesophageal reflux disease) (Acute) Hypercholesterolemia (Acute) Hyponatremia (Acute) Hyponatremia with decreased serum osmolality (Acute) Infection of lumbar spine (Acute) Left cuboid fracture (Acute) Nasal polyps (Acute) Neuropathy (Acute) Numbness (Acute) ESTEFANIA on CPAP (Acute) Prostatitis (Acute) Right tibial fracture (Acute) Spinal stenosis (Acute) Urethral stricture (Acute) Surgical History (Last Updated 04/05/18 @ 14:31 by Liana Olguin, RN) H/O prostate biopsy (Acute) History of ankle surgery (Acute ~2006) History of biopsy (Acute 05/07/17) History of nasal surgery (Acute 05/07/17) History of vasectomy (Acute) Hx of hemorrhoidectomy (Acute) Hx of laminectomy (Acute 06/12/06) Status post left foot surgery (Acute) Occupational Therapy Inpatient Evaluation/Re-Eval M1 PT/OT-IP Prior Functional Status Start: 04/09/18 16:00 Freq: NEEDED Status: Active Protocol: Document 04/12/18 13:48 [facility] (Rec: 04/12/18 14:11 [facility] [email or web address]) Medical Review Prior Functional Status Medical History Reviewed Yes Communication able to make needs known Mobility and Gait stated that he is independent with all mobilities and ambulation without AD Activities of Daily Living and IADL's Pt states prior independent with ADl needs. Social History Household Members significant other children Living Arrangements House Number of Floors (Floors) Two Floors Number of Stairs To Enter/Railing? lives in a split level house has 1/2 step to enter from the front and no steps from the back door; pt stated that he can stay on main level of the house if needed but prefers to be able to go upstairs where is room is. has 6 steps with L rail ascending +platform +5 steps R rail ascending to get to 2nd level. Home Environment Standard Height Toilet Walk in Shower Built-In Shower Seat Home Equipment Front Wheel Walker Crutches Hand Held Shower Grab Bars In Shower M2 OT-IP Current Condition Start: 04/10/18 17:24 Freq: Status: Active Protocol: Document 04/12/18 13:48 [facility] (Rec: 04/12/18 14:11 [facility] [email or web address]) Occupational Therapy Current Condition Current Condition Evaluation Date 04/12/18 Treatment Diagnosis Spinal Stenosis Diagnosis Onset Date 04/09/18 Post Operative Precautions Lumbar Precautions Log Roll No Twisting Limit Bending Lifting Restriction of 10 lbs Gait Belt above Incisional Area M3 OT- IP Subjective and Pain Start: 04/10/18 17:24 Freq: Status: Active Protocol: Document 04/12/18 13:48 [facility] (Rec: 04/12/18 14:11 [facility] [email or web address]) OT- Subjective Occupational Therapy Visit Type Type Initial Evaluation Visit Start Time 12:50 Visit Stop Time 13:30 Total Visit Minutes 40 Occupational Therapy Visit Comments Patient Comments Pt agreeable to get up for lunch. Pt a bit disorientated after being woken up after his nap and though that he had slept through the night and missed his pain medications and thought he had his breakfast tray in front of him. Patient/Caregiver Goals To go home. OT Pain Assessment Pain When Pain Assessed During Mobility Pain Present Pain Present Pain Reported Location Back Intensity 4 M4 OT- IP ADL's Start: 04/10/18 17:24 Freq: Status: Active Protocol: Document 04/12/18 13:48 [facility] (Rec: 04/12/18 14:11 [facility] [email or web address]) OT ADL-Dressing General Eval Lower Body Dressing Ability Maximum Assistance Areas Needing Assistance Socks Comments OT Dressing Comments Pt a bit groggy and confused, and introduced use of LB AED, to practice and go over more tomorrow. OT ADL-Toileting Comments OT Toileting Comments Pt still has catheter in. M6 OT- IP Functional Cognition Start: 04/10/18 17:24 Freq: Status: Active Protocol: Document 04/12/18 13:48 [facility] (Rec: 04/12/18 14:11 [facility] [email or web address]) Cognitive Factors Limiting Selfcare Function Cognitive Ability Level of Alertness Alert Confusional State Drowsy Patient Orientation Name Place Situation Attention Span Ability Capable of Focused Attention Unable to Focus Unable to Sustain Attention Ability to Follow Commands Able to Follow One Step Commands with Increased Time Able to Follow One Step Commands with Repetition Memory Description Immediate Impaired Short Term Impaired Safety Awareness Decreased Recall of Precautions Decreased Ability to Apply Precautions Underestimates Need for Assistance Problem Solving Ability Unable to Identify Errors Needs Assist to Identify Solutions Cognitive Comments Cognitive Assessment Comments Pt a bit confused and perserverating on low BP and how it correlates to prior episode from another hospital stay. Pt not able to stay on task and needing constant redirection. Pt not able to recall back precautions and 2/ 3 after cues. Pt needing assist cues for hand placement and safety for FWW use. Nursing aware of pt's confusion. OT- Vision and Hearing OT- Hearing Assessment OT- Hearing Assessment WFL M7 OT- IP Mobility and Balance Start: 04/10/18 17:24 Freq: Status: Active Protocol: Document 04/12/18 13:48 [facility] (Rec: 04/12/18 14:11 [facility] [email or web address]) OT- Bed Mobility Assessment Rolling Type of Rolling Roll to Left Level of Assistance Standby Assistance 1 Person Assistance Supine to Sit Supine to Sit Assist Standby Assistance 1 Person Assistance OT-Transfer Assessment Sit to and From Stand Sit to and from Stand Contact Guard Assistance Total Assistance Transfers Transfer Ability Standby Assistance Contact Guard Assistance 1 Person Assistance Technique Transfer Destination Chair Transfer Technique Stand Step Pivot Devices Transfer Assistive Devices Gait Belt Front Wheeled Walker Comments Mobility Comments Pt needing cues for log rolling. Pt tends to reach out to recliner and needing cues to use FWW to get all the way back to recliner before reaching back to sit. Bp 94/56 supine and sitting 107/62. OT- Balance Assessment Sitting Balance and Reactions Static Sitting Balance Ability Normal Dynamic Sitting Balance Ability Normal Standing Balance and Reactions Static Standing Balance Ability Good M8 OT- IP Objective Assessments Start: 04/10/18 17:24 Freq: Status: Active Protocol: Document 04/12/18 13:48 [facility] (Rec: 04/12/18 14:11 [facility] [email or web address]) OT Strength Comments Strength Comments WFL M9 OT- IP Assessment and Plan Start: 04/10/18 17:24 Freq: Status: Active Protocol: Document 04/12/18 13:48 [facility] (Rec: 04/12/18 14:11 [facility] [email or web address]) OT Summary Assessment and Plan Potential Rehabilitation Potential Good Analytic Complexity at Evaluation Low Summary OT Impairments Pain Balance Functional Cognition Grooming Dressing Toileting Bathing Progress Towards Goals Progressing Toward Goals Slow Progress due to Cognition Assessment Summary Pt low complxity and main barriers are pain, confusion, decreased safety awareness, and needing lots of concrete commands to follow. Pt per mobility moving well at this time CGA/SBA with FWW for transfer and bed mobility. Pt continue to benefit from OT more training with AED , equipment needs and caregiver training prior to pt going home. Goals Grooming Goal Standby Assistance Dressing Goal Minimal Assistance Toileting Goal Standby Assistance Bathing Goal Minimal Assistance Toilet Transfer Goal Standby Assistance Shower Transfer Goal Contact Guard Assistance Patient/Caregiver Education Goal Demonstrate Post-Op Precautions Caregiver Independent Assisting Patient Days to Meet Goals 5 Frequency of Treatment Frequency Of Treatment Once a Day Treatment Plan OT Treatment Plan ADL Training Functional Cognition Training Functional Mobility Patient/Family Education Discharge Planning Other Treatment Recommendations and Next Practice AED for LB dressing. Treatment Focus Discharge Recommendations OT Discharge Recommendations Home with 24/7 Assist SNF Rehab Other Discharge Recommendations Pending medical stability and caregiver training due to extensive back surgeries, pt may need short skilled stay versus home with 24/7 assist. Home Equipment Needs RTS, shower chair
[2018-04-12] MEDS: ACETAMINOPHEN 325 MG TABLET 975 MG PO ×2 (14:56→20:42)
--- NOTE | 2018-04-12 15:00 | PT.IPTN ---
Current Diagnoses Spinal stenosis, lumbar region with neurogenic claudication (04/09/18) Postlaminectomy syndrome, not elsewhere classified (04/09/18) Strain of muscle, fascia and tendon of lower back, subsequent encounter (04/09/18) Surgery Performed Operation Date: 04/09/18 07:45 Actual Procedures p L1-L3 Anterior Fusion - Francisco Javier Demarco MD Operation Date: 04/11/18 10:45 Actual Procedures p L1-S1, redo laminectomies & Instru posterior fusion w/bone graft(Not Applicable) - Francisco Javier Demarco MD Physical Therapy Treatment Note M2 PT-IP Current Condition Start: 04/09/18 16:00 Freq: NEEDED Status: Active Protocol: Document 04/12/18 09:30 HH (Rec: 04/12/18 11:05 HH [email or web address]) Physical Therapy Current Condition Current Condition Evaluation Date 04/12/18 Treatment Diagnosis L1-L4 posterior fusion, L5S1 TLIF Onset Date 04/12/18 Precautions Lumbar Precautions Log Roll No Twisting Limit Bending Lifting Restriction of 10 lbs Gait Belt above Incisional Area Weight Bearing Status Weight Bearing Status Weight Bear as Tolerated M3 PT-IP Subjective Start: 04/09/18 16:00 Freq: NEEDED Status: Active Protocol: Document 04/12/18 14:49 [facility] (Rec: 04/12/18 15:00 GGD [id number]) Subjective Physical Therapy Visit Type Type Treatment Note Visit Start Time 14:15 Visit Stop Time 14:45 Total Visit Minutes 30 Number of CERAMIC RESEARCH ENGINEER Visits 1 Physical Therapy Visit Comments Patient Comments Pt states he willing to walk. Therapy Pain Assessment Pain When Pain Assessed During Mobility Pain Present Pain Present Pain Reported Location Back Intensity 4 Scale Used Numeric (1 - 10) M4 PT-IP Mobility and Gait Start: 04/09/18 16:00 Freq: NEEDED Status: Active Protocol: Document 04/12/18 14:49 [facility] (Rec: 04/12/18 15:00 GGD [id number]) PT-Bed Mobility Assessment Rolling Type of Rolling Log Rolling Level of Assist Contact Guard Assistance Sit to Supine Sit to Supine Minimal Assistance 1 Person Assistance Scooting Scooting to Edge of Bed Standby Assistance PT-Transfer Assessment Sit to and From Stand Sit to and from Stand Standby Assistance Use of Upper Extremities Equipment Transfer Assistive Device Gait Belt Front Wheeled Walker Orthotic/Prosthetic Devices or Brace: No Transfers Transfer Destination Bed Transfer Ability Level of Assist Contact Guard Assistance 1 Person Assistance Gait Assessment Gait Gait Assistance Required: Contact Guard Assist 1 Person Assist Distance (Feet) 220 Able to Maintain Weight Bearing Status Yes During Gait Assistive Devices Assistive Device Gait Belt Front Wheeled Walker Orthotic/Prosthetic Devices or Brace: No Gait Deviations General Gait Pattern Decreased Stride Length Decreased Feet Clearance Step-to Gait Factors Limiting Gait Function Factors Limiting Gait Function Decreased Activity Tolerance Decreased Sensation Decreased Strength Limited Range of Motion Pain Poor Balance Poor Safety Awareness Comments Gait Comments Pt had slow gait pace. He need multiple rest breaks. M5 PT-IP Objective Assessments Start: 04/09/18 16:00 Freq: NEEDED Status: Active Protocol: Document 04/12/18 09:30 HH (Rec: 04/12/18 11:05 HH [email or web address]) Orientation Orientation/Cognition Level of Alertness Alert Orientation Name Age Birthday Date Situation Language Function Ability No Deficits Noted Safety Awareness Decreased Safety Awareness Gross Range of Motion Lower Extremity ROM Assessment Within Functional Limits Strength Lower Extremity Strength Assessment Within Functional Limits Coordination Assessment Gross Coordination Gross Coordination WNL Sensation Assessment Sensation Gross Sensation WNL Muscle Tone Muscle Tone WNL Yes M6 PT-IP Treatment Start: 04/09/18 16:00 Freq: NEEDED Status: Active Protocol: Document 04/12/18 14:49 [facility] (Rec: 04/12/18 15:00 GGD [id number]) Physical Therapy Treatment Education Education Provided Precautions Safety M7 PT-IP Assessment and Plan Start: 04/09/18 16:00 Freq: NEEDED Status: Active Protocol: Document 04/12/18 14:49 [facility] (Rec: 04/12/18 15:00 GGD [id number]) PT Summary Assessment and Plan Summary Assessment Summary Pt able to progress gait distance, with heavy use of UE on FWW. He needed min assist with LE for bed mobility. If continues to progress he maybe safe to D/C home. Frequency of Treatment Frequency Of Treatment Twice a Day Treatment Plan Physical Therapy Treatment Plan Bed Mobility Training Transfer Training Gait Training Therapeutic Exercise Balance Retraining Post Op Education Discharge Planning Hot or Cold Pack Neuromuscular Re-ed Coordination Retraining Manual Therapy Recommendations To Nursing Amount of Assist Needed 1 Person Assist Discharge Recommendations PT Discharge Recommendations Home with Assistance SNF Rehab Other Discharge Recommendations SNF vs home with assistance depending on progress
--- NOTE | 2018-04-12 16:27 | PC.NURSE ---
Pt is cooperative, reports mild pain to lower back, log roll to sitting position in bed; trace edema; IV fluids infusing; IS 2200 ls clear, O2 RA=99%; [employer] drsg saturated 50%; Arizmendi draining to gravity; bed alarm active; call light within reach
--- NOTE | 2018-04-12 17:17 | P.CONS_ITS ---
History of Present Illness Date Patient Seen: 04/12/18 Chief complaint: Lumbar Fusion Reason for consult: hyponatremia Requesting provider: Francisco Javier Demarco Narrative: Patient is a 67-year-old male status post two-stage lumbar laminectomy and fusion by Dr. Francisco Javier Demarco. I was asked to see patient due to concern about his history of hyponatremia. Patient also has had several episodes of hypotension with BP as low as 77/53 and earlier this morning 95/59. Also noted febrile with temp of 102? but subsequently defervesced. Nurses felt he was confused earlier today but subsequently seems to have cleared up. He has history of hypertension. He has recent history of severe hyponatremia. Patient states his serum sodium was as low as 118 with symptoms of severe confusion requiring hospital management. This was a couple of months ago. Environmental Health And Safety Manager recommended he restrict his fluids to 40 oz a day. Patient states he has been successful maintaining his sodium in the range of 133-134 with fluid restriction. Mainly he has been restricting to 50 oz a day. Patient also reports recent problems with unexplained hypotension. Patient states his blood pressure normally runs in the 120s. States his blood pressure several times got as low as 70 systolic associated with syncope or near-syncope and tunnel vision. This was apparently evaluated at ER/hospital but does not seem like any medications were adjusted. He is on lisinopril 10 mg daily and terazosin 10 mg at bedtime (also for BPH). Patient does have obstructive sleep apnea and compliant with CPAP. Current complaint is of some discomfort in his back and anxiety regarding his low sodium levels and blood pressure. PFSH Medical History Anxiety (Acute) Asthma (Acute) Cervical spinal stenosis (Acute) Cough (Acute) Depression (Acute) Essential hypertension (Acute) GERD (gastroesophageal reflux disease) (Acute) Hypercholesterolemia (Acute) Hyponatremia (Acute) Hyponatremia with decreased serum osmolality (Acute) Infection of lumbar spine (Acute) Left cuboid fracture (Acute) Nasal polyps (Acute) Neuropathy (Acute) Numbness (Acute) ESTEFANIA on CPAP (Acute) Prostatitis (Acute) Right tibial fracture (Acute) Spinal stenosis (Acute) Urethral stricture (Acute) Surgical History H/O prostate biopsy (Acute) History of ankle surgery (Acute ~2006) History of biopsy (Acute 05/07/17) History of nasal surgery (Acute 05/07/17) History of vasectomy (Acute) Hx of hemorrhoidectomy (Acute) Hx of laminectomy (Acute 06/12/06) Status post left foot surgery (Acute) Social History household members: significant other and children Smoking Status: Never smoker alcohol intake: current Social History household members: significant other and children Smoking Status: Never smoker alcohol intake: current Meds Home Medications Medication Instructions Recorded Confirmed Type albuterol sulfate 2 puff INHALATION BID #0 04/07/10 04/09/18 History aspirin 81 mg PO BEDTIME #0 04/07/10 04/09/18 History diazepam [Valium] 10 mg PO BEDTIME PRN #0 04/07/10 04/09/18 History gabapentin [Neurontin] 1.5 tab PO TID #0 04/07/10 04/09/18 History hydrocodone-acetaminophen 1 tab PO Q6H PRN #0 04/07/10 04/09/18 History multivitamin 1 tab PO DAILY #0 04/07/10 04/09/18 History omeprazole 20 mg PO BEDTIME #0 04/07/10 04/09/18 History zolpidem [Ambien CR] 6.25 mg PO BEDTIME PRN #0 04/07/10 04/09/18 History fluticasone 2 spray INTRANASAL BID 04/05/18 04/09/18 History lisinopril 10 mg PO QAM 04/05/18 04/09/18 History loratadine [Allerclear] 10 mg PO DAILY 04/05/18 04/09/18 History niacin [Niaspan Extended-Release] 1,000 mg PO DAILY 04/05/18 04/09/18 History terazosin 10 mg PO BEDTIME 04/05/18 04/09/18 History Allergies Allergy/AdvReac Type Severity Reaction Status Date / Time doxazosin AdvReac Pt does Verified 04/09/18 07:20 not recall, possible GI intolerance fluorouracil AdvReac Pt does Verified 04/09/18 07:20 not recall, possible GI intolerance trazodone AdvReac GI Verified 04/09/18 07:20 Intolerance Review of Systems Review of Systems All systems reviewed & are unremarkable except as noted in HPI and below Exam Vital Signs (past 8 hours): - 04/12/18 09:28 04/12/18 12:55 04/12/18 15:25 Temperature 98.7 F 99.0 F Pulse Rate 95 H 92 H 92 H Respiratory Rate 16 18 18 Blood Pressure 94/56 L 104/66 Pulse Oximetry 97 98 100 04/12/18 16:17 Temperature Pulse Rate Respiratory Rate Blood Pressure Pulse Oximetry 100 Oxygen Delivery Method Room Air Oxygen Flow Rate 0 Narrative Exam Narrative: GENERAL: Alert male sitting in chair and in no acute distress, conversant, cooperative HEAD: Atraumatic. Normocephalic. EYES: Pupils equal, round and reactive. Extraocular motions intact. OROPHARYNX: moist mucosa NECK: Trachea midline. No JVD or lymphadenopathy. CARDIOVASCULAR: Regular rate and rhythm with soft aortic sclerosis murmur, no gallop or rub RESPIRATORY: Clear to auscultation bilaterally. GASTROINTESTINAL: Abdomen obese, nondistended, soft, non-tender. No hepato- splenomegaly, or palpable masses. EXTREMITIES: No edema. NEUROLOGICAL: Alert, well oriented, speech is intact, normal bilateral upper and lower extremity strength SKIN: warm, dry, no rash Objective Labs Result Diagrams: 04/12/18 07:20 04/12/18 07:20 Labs: Laboratory Results - last 24 hr 04/12/18 04/12/18 07:20 07:20 Hgb 9.2 L Hct 26.3 L Sodium 134 L Potassium 4.4 Chloride 101 Carbon Dioxide 27 BUN 24 H Creatinine 1.10 Estimated GFR > 60.0 BUN/Creatinine Ratio 21.8 Glucose 109 Calcium 8.3 L Assessment & Plan Assessment Narrative: This is a 67-year-old male with status post 2 stage lumbar fusion during this admission with history of severe hyponatremia, hypotension and postop fever in hospital. 1. Hypotension -likely affect of anesthesia and surgical blood loss, patient also reports recent history of labile blood pressures which have gotten real low for unexplained reasons -hold routine lisinopril 10 mg q.d. and terazosin 10 mg q.p.m. -continue maintenance IV fluids until blood pressures have stabilized -consider cutting back or stopping lisinopril if blood pressure is running normal on discharge, patient may need the terazosin for his BPH, discussed with patient may need to cut back on antihypertensive medications 2. Postop fever -probably inflammation, denies cough or urinary symptoms -check WBC, obtain urinalysis 3. History of severe hyponatremia -last serum sodium 134, previous sodium 136 -previous workup with Nephrology unavailable, etiology unclear but sounds like may be due to excess fluid intake or SIADH -recommended fluid restrict to 1200 mL daily per patient home routine, consider more strict fluid restriction if sodium level dropped significantly -encourage liberal salt use with meals -check BMP daily in hospital 4. Obstructive sleep apnea -continue CPAP
[2018-04-12 19:24] LABS: Bacteria Urine None Seen
[2018-04-12 19:26] LABS: Appearance Urine UA CLOUDY; Bilirubin Urine UA NEGATIVE (NEGATIVE); Color Urine UA YELLOW; Glucose Urine UA NEGATIVE (Negative); Ketones Urine UA TRACE (NEGATIVE); Leukocyte Esterase Urine UA TRACE (NEGATIVE); Nitrite Urine UA NEGATIVE (Negative); Occult Blood Urine UA 3+ (Negative); Protein Urine UA 2+ (Negative); RBC Urine 5-10/HPF (0-5/HPF); Urobilinogen Urine UA 0.2 E.U./dL (0.2)
[2018-04-12 19:27] LABS: Culture Indicated Urine Cult Not Indicated; Squamous Epithelial Cell Urine 5-10 /HPF; Urine Comments NOT ENOUGH TO SPIN; WBC Urine 5-10/HPF (0-5/HPF)
[2018-04-12] MEDS: ASPIRIN EC 81 MG TABLET PO (20:37)
[2018-04-12] MEDS: PANTOPRAZOLE 20 MG TABLET PO (20:38)
[2018-04-12] MEDS: SENNOSIDES 8.6 MG TABLET 17.2 MG PO (20:39)
[2018-04-12 20:50] LABS: Add Manual Diff / Slide Review NO; Basophils Absolute Auto 0 /uL (0-100); Basophils Percent Auto 0.3 % (0-2); Eosinophils Absolute Auto 100 /uL (0-450); Eosinophils Percent Auto 2.6 % (2-4); Hematocrit 24.9 % (41-53); Hemoglobin 8.6 g/dL (13.5-17.5); Lymphocytes Absolute Auto 800 /uL (1100-4500); Lymphocytes Percent Auto 14.6 % (25-40); Mean Corpuscular HGB Conc 34.3 % (30-36); Mean Corpuscular Hemoglobin 30.9 PG (26-34); Mean Corpuscular Volume 89.9 fL (80-100); Monocytes Absolute Auto 600 /uL (0-900); Monocytes Percent Auto 10.1 % (3-14); Neutrophils Absolute Auto 4000 /uL (1500-7000); Neutrophils Percent Auto 72.4 % (50-75); Platelet Count 116 X10^3/uL (150-400); Red Blood Cell Count 2.77 X10^6/uL (4.5-5.9); Red Cell Distribution Width 12.7 % (11.6-14.8); White Blood Cell Count 5.5 X10^3/uL (4.5-11.0)
[2018-04-13] VITALS (9 sets, daily range): BP systolic 107–137; BP diastolic 59–74; PULSE 82–111; RESP 16–20; TEMP 36.2–36.9; O2SAT 95–100
[2018-04-13] MEDS: MAGNESIUM HYDROXIDE 30 ML UDC PO (00:53)
[2018-04-13] MEDS: OXYCODONE IR 5 MG TABLET PO ×3 (01:33→22:16)
[2018-04-13] MEDS: hydrOXYzine pamoate 25 MG CAPSULE PO ×2 (01:33→22:16)
--- NOTE | 2018-04-13 05:58 | PC.NURSE ---
Pt is AxOx3, VSS, tolerating room air, CPAP HS cont pulse ox on. NS@125mL/hr running as ordered. 1200mL fluid restriction. Calf SCDs on bilaterally throughout night. HO dressing to back is heavily saturated on distal end. Functioning properly. Incentive spirometry use is good. Pt ambulates with a FWW and SBA very well. No leg weakness. Back pain is a 4/10 at most. 5mg Percolone and a Vistaril given with relief. Pt said he hadn't had a BM since Sunday. Milk of Magnesia given. Patient had a small BM tonight. Arizmendi 1100mL clear yellow urine. Arizmendi removed at 0430.
[2018-04-13 07:31] LABS: Hemoglobin 8.3 g/dL (13.5-17.5)
[2018-04-13 07:36] LABS: Blood Urea Nitrogen 26 mg/dL (9-20); Calcium 8.1 mg/dL (8.4-10.2); Carbon Dioxide 27 mmol/L (22-32); Chloride 104 mmol/L (98-107); Estimated Glomerular Filt Rate > 60.0 mL/min (>60); Glucose 114 mg/dL (80-110); HEMOLYSIS < 15 (0-50); Potassium 4.1 mmol/L (3.4-5.1); Sodium 136 mmol/L (137-145)
[2018-04-13] MEDS: ALBUTEROL HFA 60 PUFF/8 GM INH INH ×2 (08:30→20:33)
--- NOTE | 2018-04-13 08:32 | PM.PN.1 ---
Subjective Interval history: The been no new problems no new issues in the prior 24 hr Exam Vital Signs (past 8 hours): - 04/13/18 01:11 04/13/18 04:01 Temperature 97.1 F L 98.3 F Pulse Rate 82 85 Respiratory Rate 16 16 Blood Pressure 107/61 117/68 Pulse Oximetry 98 95 Oxygen Delivery Method Room Air,CPAP Oxygen Flow Rate 0 Narrative Exam Narrative: GENERAL: Alert male sitting in chair and in no acute distress, conversant, cooperative HEAD: Atraumatic. Normocephalic. EYES: Pupils equal, round and reactive. Extraocular motions intact. OROPHARYNX: moist mucosa NECK: Trachea midline. No JVD or lymphadenopathy. CARDIOVASCULAR: Regular rate and rhythm with soft aortic sclerosis murmur, no gallop or rub RESPIRATORY: Clear to auscultation bilaterally. GASTROINTESTINAL: Abdomen obese, nondistended, soft, non-tender. No hepato-splenomegaly, or palpable masses. EXTREMITIES: No edema. NEUROLOGICAL: Alert, well oriented, speech is intact, normal bilateral upper and lower extremity strength SKIN: warm, dry, no rash Objective Labs Result Diagrams: 04/13/18 06:51 04/13/18 06:51 Labs: Laboratory Results - last 24 hr 04/12/18 04/12/18 04/13/18 18:00 20:30 06:51 WBC 5.5 RBC 2.77 L Hgb 8.6 L 8.3 L Hct 24.9 L 24.0 L MCV 89.9 MCH 30.9 MCHC 34.3 RDW 12.7 Plt Count 116 L Neut % (Auto) 72.4 Lymph % (Auto) 14.6 L [place] % (Auto) 10.1 Eos % (Auto) 2.6 Baso % (Auto) 0.3 Neut # (Auto) 4000 Lymph # (Auto) 800 L [place] # (Auto) 600 Eos # (Auto) 100 Baso # (Auto) 0 Sodium Potassium Chloride Carbon Dioxide BUN Creatinine Estimated GFR BUN/Creatinine Ratio Glucose Calcium Urine Color Yellow Urine Appearance Cloudy Urine pH 6.0 Ur Specific [place] 1.020 Urine Protein 2+ H Urine Glucose (UA) Negative Urine Ketones Trace H Urine Occult Blood 3+ H Urine Nitrate Negative Urine Bilirubin Negative Urine Urobilinogen 0.2 Ur Leukocyte Esterase Trace H Urine RBC 5-10/hpf H Urine WBC 5-10/hpf H Ur Squamous Epith Cells 5-10 /hpf H Urine Bacteria None seen Ur Culture Indicated? Cult not indicated Micro UA Comment Not enough to spin 04/13/18 06:51 WBC RBC Hgb Hct MCV MCH MCHC RDW Plt Count Neut % (Auto) Lymph % (Auto) [place] % (Auto) Eos % (Auto) Baso % (Auto) Neut # (Auto) Lymph # (Auto) [place] # (Auto) Eos # (Auto) Baso # (Auto) Sodium 136 L Potassium 4.1 Chloride 104 Carbon Dioxide 27 BUN 26 H Creatinine 1.00 Estimated GFR > 60.0 BUN/Creatinine Ratio 26.0 H Glucose 114 H Calcium 8.1 L Urine Color Urine Appearance Urine pH Ur Specific [place] Urine Protein Urine Glucose (UA) Urine Ketones Urine Occult Blood Urine Nitrate Urine Bilirubin Urine Urobilinogen Ur Leukocyte Esterase Urine RBC Urine WBC Ur Squamous Epith Cells Urine Bacteria Ur Culture Indicated? Micro UA Comment Assessment & Plan Assessment Narrative: 1. Hypertension -this is resolved. 2. Postop fever -he has had no fever in the past 24 hr and his T-max in the prior 24 hr has been 99.3 -white count has been normal. Urinalysis is unremarkable without any significant pyuria and there were no bacteria seen on his urinalysis. He has no coughing or respiratory difficulty. No further workup is felt indicated 3. Disposition patient is stable from medical standpoint for discharge today
--- NOTE | 2018-04-13 08:45 | P.PN_ITS ---
Subjective Date Patient Seen: 04/13/18 Time Patient Seen: 08:44 Interval history: He is feeling better today. He has been able to get out of bed and move around but still limited on how much walking up and down the halls. Still some tingling in the right foot but no more burning pain. The back is anywhere from a 2 to a 6. Exam Vital Signs (past 8 hours): - 04/13/18 01:11 04/13/18 04:01 Temperature 97.1 F L 98.3 F Pulse Rate 82 85 Respiratory Rate 16 16 Blood Pressure 107/61 117/68 Pulse Oximetry 98 95 Oxygen Delivery Method Room Air,CPAP Oxygen Flow Rate 0 Const Orientation: alert and oriented x3 Back/Spine/Pelvis Other: 5/5 motor both lower extremities. Dry situate addressing posteriorly. Objective Labs Result Diagrams: 04/13/18 06:51 04/13/18 06:51 Labs: Laboratory Results - last 24 hr 04/12/18 04/12/18 04/13/18 18:00 20:30 06:51 WBC 5.5 RBC 2.77 L Hgb 8.6 L 8.3 L Hct 24.9 L 24.0 L MCV 89.9 MCH 30.9 MCHC 34.3 RDW 12.7 Plt Count 116 L Neut % (Auto) 72.4 Lymph % (Auto) 14.6 L [place] % (Auto) 10.1 Eos % (Auto) 2.6 Baso % (Auto) 0.3 Neut # (Auto) 4000 Lymph # (Auto) 800 L [place] # (Auto) 600 Eos # (Auto) 100 Baso # (Auto) 0 Sodium Potassium Chloride Carbon Dioxide BUN Creatinine Estimated GFR BUN/Creatinine Ratio Glucose Calcium Urine Color Yellow Urine Appearance Cloudy Urine pH 6.0 Ur Specific [place] 1.020 Urine Protein 2+ H Urine Glucose (UA) Negative Urine Ketones Trace H Urine Occult Blood 3+ H Urine Nitrate Negative Urine Bilirubin Negative Urine Urobilinogen 0.2 Ur Leukocyte Esterase Trace H Urine RBC 5-10/hpf H Urine WBC 5-10/hpf H Ur Squamous Epith Cells 5-10 /hpf H Urine Bacteria None seen Ur Culture Indicated? Cult not indicated Micro UA Comment Not enough to spin 04/13/18 06:51 WBC RBC Hgb Hct MCV MCH MCHC RDW Plt Count Neut % (Auto) Lymph % (Auto) [place] % (Auto) Eos % (Auto) Baso % (Auto) Neut # (Auto) Lymph # (Auto) [place] # (Auto) Eos # (Auto) Baso # (Auto) Sodium 136 L Potassium 4.1 Chloride 104 Carbon Dioxide 27 BUN 26 H Creatinine 1.00 Estimated GFR > 60.0 BUN/Creatinine Ratio 26.0 H Glucose 114 H Calcium 8.1 L Urine Color Urine Appearance Urine pH Ur Specific [place] Urine Protein Urine Glucose (UA) Urine Ketones Urine Occult Blood Urine Nitrate Urine Bilirubin Urine Urobilinogen Ur Leukocyte Esterase Urine RBC Urine WBC Ur Squamous Epith Cells Urine Bacteria Ur Culture Indicated? Micro UA Comment Assessment & Plan Post-op Postoperative Procedures Operation Date: 04/09/18 07:45 Actual Procedures Side Surgeon p L1-L3 Anterior Fusion Francisco Javier Demarco MD Operation Date: 04/11/18 10:45 Actual Procedures Side Surgeon p L1-S1, redo laminectomies & Instru posterior fusion w/bone graft Not Applicable Francisco Javier Demarco MD he is stable from his revision lumbar surgery. Continue to mobilize with physical therapy. Anticipate discharge home tomorrow probably. Appreciate Medicine input. He is now on a fluid restriction for his hyponatremia. The sodium looks a little bit better today. H&H still low but stable. He is asymptomatic. We will recheck again in the morning.
--- NOTE | 2018-04-13 10:45 | PT.IPTN ---
Current Diagnoses Spinal stenosis, lumbar region with neurogenic claudication (04/09/18) Postlaminectomy syndrome, not elsewhere classified (04/09/18) Strain of muscle, fascia and tendon of lower back, subsequent encounter (04/09/18) Surgery Performed Operation Date: 04/09/18 07:45 Actual Procedures p L1-L3 Anterior Fusion - Francisco Javier Demarco MD Operation Date: 04/11/18 10:45 Actual Procedures p L1-S1, redo laminectomies & Instru posterior fusion w/bone graft(Not Applicable) - Francisco Javier Demarco MD Physical Therapy Treatment Note M2 PT-IP Current Condition Start: 04/09/18 16:00 Freq: NEEDED Status: Active Protocol: Document 04/12/18 09:30 HH (Rec: 04/12/18 11:05 HH [email or web address]) Physical Therapy Current Condition Current Condition Evaluation Date 04/12/18 Treatment Diagnosis L1-L4 posterior fusion, L5S1 TLIF Onset Date 04/12/18 Precautions Lumbar Precautions Log Roll No Twisting Limit Bending Lifting Restriction of 10 lbs Gait Belt above Incisional Area Weight Bearing Status Weight Bearing Status Weight Bear as Tolerated M3 PT-IP Subjective Start: 04/09/18 16:00 Freq: NEEDED Status: Active Protocol: Document 04/13/18 10:45 GGD (Rec: 04/13/18 12:11 GGD [email or web address]) Subjective Physical Therapy Visit Type Type Treatment Note Visit Start Time 10:15 Visit Stop Time 10:45 Total Visit Minutes 30 Number of CASE ASSEMBLER Visits 2 Physical Therapy Visit Comments Patient Comments Pt states he is willing to walk. Therapy Pain Assessment Pain When Pain Assessed During Mobility Pain Present Pain Present Pain Reported Location Back Intensity 4 Scale Used Numeric (1 - 10) M4 PT-IP Mobility and Gait Start: 04/09/18 16:00 Freq: NEEDED Status: Active Protocol: Document 04/13/18 10:45 GGD (Rec: 04/13/18 12:11 GGD [email or web address]) PT-Bed Mobility Assessment Rolling Type of Rolling Log Rolling Level of Assist Contact Guard Assistance Supine to Sit Supine to Sit Standby Assistance Scooting Scooting to Edge of Bed Standby Assistance PT-Transfer Assessment Sit to and From Stand Sit to and from Stand Standby Assistance Use of Upper Extremities Equipment Transfer Assistive Device Gait Belt Front Wheeled Walker Orthotic/Prosthetic Devices or Brace: No Transfers Transfer Destination Bed Transfer Ability Level of Assist Contact Guard Assistance 1 Person Assistance Gait Assessment Gait Gait Assistance Required: Contact Guard Assist 1 Person Assist Distance (Feet) 400 Able to Maintain Weight Bearing Status Yes During Gait Assistive Devices Assistive Device Gait Belt Front Wheeled Walker Orthotic/Prosthetic Devices or Brace: No Gait Deviations General Gait Pattern Decreased Stride Length Decreased Feet Clearance Step-to Gait Factors Limiting Gait Function Factors Limiting Gait Function Decreased Activity Tolerance Decreased Sensation Decreased Strength Limited Range of Motion Pain Poor Balance Poor Safety Awareness M5 PT-IP Objective Assessments Start: 04/09/18 16:00 Freq: NEEDED Status: Active Protocol: Document 04/12/18 09:30 HH (Rec: 04/12/18 11:05 HH [email or web address]) Orientation Orientation/Cognition Level of Alertness Alert Orientation Name Age Birthday Date Situation Language Function Ability No Deficits Noted Safety Awareness Decreased Safety Awareness Gross Range of Motion Lower Extremity ROM Assessment Within Functional Limits Strength Lower Extremity Strength Assessment Within Functional Limits Coordination Assessment Gross Coordination Gross Coordination WNL Sensation Assessment Sensation Gross Sensation WNL Muscle Tone Muscle Tone WNL Yes M6 PT-IP Treatment Start: 04/09/18 16:00 Freq: NEEDED Status: Active Protocol: Document 04/13/18 10:45 GGD (Rec: 04/13/18 12:11 GGD [email or web address]) Physical Therapy Treatment Education Education Provided Precautions Safety M7 PT-IP Assessment and Plan Start: 04/09/18 16:00 Freq: NEEDED Status: Active Protocol: Document 04/13/18 10:45 GGD (Rec: 04/13/18 12:11 GGD [email or web address]) PT Summary Assessment and Plan Summary Assessment Summary Pt improving with mobility. He was able to progress gait distance and tolerance. He had improved stability with gait. He was SBA for bed mobility. Pt safe for home D/C when medically stable. Frequency of Treatment Frequency Of Treatment Twice a Day Treatment Plan Physical Therapy Treatment Plan Bed Mobility Training Transfer Training Gait Training Therapeutic Exercise Balance Retraining Post Op Education Discharge Planning Hot or Cold Pack Neuromuscular Re-ed Coordination Retraining Manual Therapy Recommendations To Nursing Amount of Assist Needed 1 Person Assist Discharge Recommendations PT Discharge Recommendations Home with Assistance
[2018-04-13] MEDS: CELECOXIB 200 MG CAPSULE PO ×2 (11:02→22:08)
[2018-04-13] MEDS: DOCUSATE 100 MG CAPSULE PO ×2 (11:03→22:08)
[2018-04-13] MEDS: GABAPENTIN 300 MG CAPSULE 900 MG PO ×3 (11:03→22:08)
[2018-04-13] MEDS: MULTIVITAMIN 1 TABLET 1 TAB PO (11:04)
[2018-04-13] MEDS: LORATADINE 10 MG TABLET PO (11:04)
[2018-04-13] MEDS: NIACIN 500 MG TAB ER 1000 MG PO (11:05)
[2018-04-13] MEDS: ACETAMINOPHEN 325 MG TABLET 975 MG PO (11:21)
[2018-04-13] MEDS: FLUTICASONE 120 SPRAY/16 GM SPRAY.SUSP NASAL ×2 (11:25→22:10)
--- NOTE | 2018-04-13 11:49 | PC.NURSE ---
PICCO dressing changed to surgical site on pt's back per HCP order and due to saturation with serosaguinous drainage. Incisions are well approximated and closed with anila.
--- NOTE | 2018-04-13 13:13 | PC.NURSE ---
I was sitting down charting at the [facility] when I heard a thud coming from room 210. I immediately went in to the room to see what had happened and the patients CPAP machine was in a couple pieces on the ground. I picked up the pieces and dried them off and called Respiratory Therapy to have them check the CPAP and make sure it still works. I asked the patient what happened and he said that he was pulling the mask to put it closer to him for when he needed it. When Respiratory Therapy (Todd) came out of the room Todd reported that the patient said the CPAP machine was broken. After the incident Respiratory Therapist Todd said the CPAP machine is in good working condition. SAE Paredes and nurse dischargeSAE Paz notified of situation. -SHASHANK Cheatham
--- NOTE | 2018-04-13 15:16 | PT.IPTN ---
Current Diagnoses Spinal stenosis, lumbar region with neurogenic claudication (04/09/18) Postlaminectomy syndrome, not elsewhere classified (04/09/18) Strain of muscle, fascia and tendon of lower back, subsequent encounter (04/09/18) Surgery Performed Operation Date: 04/09/18 07:45 Actual Procedures p L1-L3 Anterior Fusion - Francisco Javier Demarco MD Operation Date: 04/11/18 10:45 Actual Procedures p L1-S1, redo laminectomies & Instru posterior fusion w/bone graft(Not Applicable) - Francisco Javier Demarco MD Physical Therapy Treatment Note M2 PT-IP Current Condition Start: 04/09/18 16:00 Freq: NEEDED Status: Active Protocol: Document 04/12/18 09:30 HH (Rec: 04/12/18 11:05 HH [email or web address]) Physical Therapy Current Condition Current Condition Evaluation Date 04/12/18 Treatment Diagnosis L1-L4 posterior fusion, L5S1 TLIF Onset Date 04/12/18 Precautions Lumbar Precautions Log Roll No Twisting Limit Bending Lifting Restriction of 10 lbs Gait Belt above Incisional Area Weight Bearing Status Weight Bearing Status Weight Bear as Tolerated M3 PT-IP Subjective Start: 04/09/18 16:00 Freq: NEEDED Status: Active Protocol: Document 04/13/18 15:10 GGD (Rec: 04/13/18 15:16 GGD [email or web address]) Subjective Physical Therapy Visit Type Type Treatment Note Visit Start Time 14:40 Visit Stop Time 15:10 Total Visit Minutes 30 Number of SYSTEMS TESTING LABORATORY TECHNICIAN Visits 3 Physical Therapy Visit Comments Patient Comments Pt up to the sink with OT. Therapy Pain Assessment Pain When Pain Assessed During Mobility Pain Present Pain Present Pain Reported Location Back Intensity 3 Scale Used Numeric (1 - 10) M4 PT-IP Mobility and Gait Start: 04/09/18 16:00 Freq: NEEDED Status: Active Protocol: Document 04/13/18 15:10 GGD (Rec: 04/13/18 15:16 GGD [email or web address]) PT-Transfer Assessment Transfers Transfer Destination Chair Transfer Ability Level of Assist Contact Guard Assistance 1 Person Assistance Gait Assessment Gait Gait Assistance Required: Contact Guard Assist 1 Person Assist Distance (Feet) 600 Able to Maintain Weight Bearing Status Yes During Gait Assistive Devices Assistive Device Gait Belt Front Wheeled Walker Orthotic/Prosthetic Devices or Brace: No Gait Deviations General Gait Pattern Decreased Stride Length Decreased Feet Clearance Step-to Gait Factors Limiting Gait Function Factors Limiting Gait Function Decreased Activity Tolerance Decreased Sensation Decreased Strength Limited Range of Motion Pain Poor Balance Poor Safety Awareness Stair Climbing Assessment Evaluation Level of Assist On Stairs Contact Guard Assistance Devices Stair Climbing Assistive Devices Left Railing Right Railing Technique/Endurance Stair Climbing Direction Ascend and Descend Stair Climbing Technique Step Over Step Number of Steps Climbed 3 Query Text: Stair Climbing Set # Repetitions (reps) 2 Comments Stair Climbing Comments PT used left rail one time and then right rail. M5 PT-IP Objective Assessments Start: 04/09/18 16:00 Freq: NEEDED Status: Active Protocol: Document 04/12/18 09:30 HH (Rec: 04/12/18 11:05 HH [email or web address]) Orientation Orientation/Cognition Level of Alertness Alert Orientation Name Age Birthday Date Situation Language Function Ability No Deficits Noted Safety Awareness Decreased Safety Awareness Gross Range of Motion Lower Extremity ROM Assessment Within Functional Limits Strength Lower Extremity Strength Assessment Within Functional Limits Coordination Assessment Gross Coordination Gross Coordination WNL Sensation Assessment Sensation Gross Sensation WNL Muscle Tone Muscle Tone WNL Yes M6 PT-IP Treatment Start: 04/09/18 16:00 Freq: NEEDED Status: Active Protocol: Document 04/13/18 15:10 GGD (Rec: 04/13/18 15:16 GGD [email or web address]) Physical Therapy Treatment Education Education Provided Precautions Safety M7 PT-IP Assessment and Plan Start: 04/09/18 16:00 Freq: NEEDED Status: Active Protocol: Document 04/13/18 15:10 GGD (Rec: 04/13/18 15:16 GGD [email or web address]) PT Summary Assessment and Plan Summary Assessment Summary Pt improving with mobility. He was safe and stable with stair mobility. He progress gait distance and tolerance. Pt safe for home D/C when medically stable. Frequency of Treatment Frequency Of Treatment Twice a Day Treatment Plan Physical Therapy Treatment Plan Bed Mobility Training Transfer Training Gait Training Therapeutic Exercise Balance Retraining Post Op Education Discharge Planning Hot or Cold Pack Neuromuscular Re-ed Coordination Retraining Manual Therapy Recommendations To Nursing Amount of Assist Needed 1 Person Assist Discharge Recommendations PT Discharge Recommendations Home with Assistance
--- NOTE | 2018-04-13 16:23 | PC.NURSE ---
Pt resting supine in bed; denies pain at rest; c/m/s to BLLEs positive; [facility] drsg to lower back c/d/i; ls clear; IS 2200; bed alarm active; call light and personal belongings within reach
--- NOTE | 2018-04-13 16:50 | OT.IP.TRT ---
Current Diagnoses Spinal stenosis, lumbar region with neurogenic claudication (04/09/18) Postlaminectomy syndrome, not elsewhere classified (04/09/18) Strain of muscle, fascia and tendon of lower back, subsequent encounter (04/09/18) Surgery Performed Operation Date: 04/09/18 07:45 Actual Procedures p L1-L3 Anterior Fusion - Francisco Javier Demarco MD Operation Date: 04/11/18 10:45 Actual Procedures p L1-S1, redo laminectomies & Instru posterior fusion w/bone graft(Not Applicable) - Francisco Javier Demarco MD Occupational Therapy Treatment Note M2 OT-IP Current Condition Start: 04/10/18 17:24 Freq: Status: Active Protocol: Document 04/12/18 13:48 [facility] (Rec: 04/12/18 14:11 [facility] [email or web address]) Occupational Therapy Current Condition Current Condition Evaluation Date 04/12/18 Treatment Diagnosis Spinal Stenosis Diagnosis Onset Date 04/09/18 Post Operative Precautions Lumbar Precautions Log Roll No Twisting Limit Bending Lifting Restriction of 10 lbs Gait Belt above Incisional Area M3 OT- IP Subjective and Pain Start: 04/10/18 17:24 Freq: Status: Active Protocol: Document 04/13/18 16:43 [facility] (Rec: 04/13/18 16:49 [facility] [email or web address]) OT- Subjective Occupational Therapy Visit Type Type Treatment Note Visit Start Time 12:50 Visit Stop Time 13:30 Total Visit Minutes 40 Occupational Therapy Visit Comments Patient Comments Pt feeling better and willing to get up to do grooming and practice AED for LB dressing needs. OT Pain Assessment Pain When Pain Assessed At Rest Pain Present Pain Present Denied Pain M4 OT- IP ADL's Start: 04/10/18 17:24 Freq: Status: Active Protocol: Document 04/13/18 16:43 [facility] (Rec: 04/13/18 16:49 [facility] [email or web address]) OT ADL-Grooming General Evaluation Grooming Ability Standby Assistance Areas Needing Assistance Retrieving/Set-up of Grooming Items Comments OT Grooming Comments Pt able to show good safety for back precautions while doing grooming and for FWW safety. OT ADL-Oral Care General Eval Oral Care Ability Independent OT ADL-Dressing General Eval Lower Body Dressing Ability Standby Assistance Areas Needing Assistance Socks Comments OT Dressing Comments Able to show pt use of AED for LB dressing and pt able to demonstrate and show good understanding. M6 OT- IP Functional Cognition Start: 04/10/18 17:24 Freq: Status: Active Protocol: Document 04/13/18 16:43 [facility] (Rec: 04/13/18 16:49 [facility] [email or web address]) Cognitive Factors Limiting Selfcare Function Cognitive Ability Level of Alertness Alert Patient Orientation Name Place Situation Attention Span Ability Capable of Focused Attention Capable of Sustained Attention Ability to Follow Commands Able to Follow Multi-Step Commands Memory Description Immediate Intact Short Term Impaired Safety Awareness Decreased Recall of Precautions Cognitive Comments Cognitive Assessment Comments Pt doing better today and not as distracted and less perseveration of needs. Pt not able to recall lifting for back precautions, however after cues able to recall. Pt able to show good safety for FWW use today. M7 OT- IP Mobility and Balance Start: 04/10/18 17:24 Freq: Status: Active Protocol: Document 04/13/18 16:43 [facility] (Rec: 04/13/18 16:49 [facility] [email or web address]) OT- Bed Mobility Assessment Rolling Type of Rolling Roll to Left Level of Assistance Standby Assistance 1 Person Assistance Supine to Sit Supine to Sit Assist Standby Assistance 1 Person Assistance OT-Transfer Assessment Sit to and From Stand Sit to and from Stand Standby Assistance 1 Person Assistance Comments Mobility Comments SBA with FWW to get out of bed and walk to the sink. M8 OT- IP Objective Assessments Start: 04/10/18 17:24 Freq: Status: Active Protocol: Document 04/12/18 13:48 [facility] (Rec: 04/12/18 14:11 [facility] [email or web address]) OT Strength Comments Strength Comments WFL M9 OT- IP Assessment and Plan Start: 04/10/18 17:24 Freq: Status: Active Protocol: Document 04/13/18 16:43 [facility] (Rec: 04/13/18 16:49 [facility] [email or web address]) OT Summary Assessment and Plan Potential Rehabilitation Potential Good Analytic Complexity at Evaluation Low Summary OT Impairments Dressing Bathing Progress Towards Goals Progressing Toward Goals Assessment Summary Pt doing much better today with following commands and overall safety awareness. Pt looking to go home tomorrow with family to [id number]. Goals Grooming Goal Independent Dressing Goal Standby Assistance Toileting Goal Independent Bathing Goal Standby Assistance Toilet Transfer Goal Independent Shower Transfer Goal Standby Assistance Patient/Caregiver Education Goal Demonstrate Post-Op Precautions Caregiver Independent Assisting Patient Days to Meet Goals 1 Frequency of Treatment Frequency Of Treatment Once a Day Treatment Plan OT Treatment Plan ADL Training Functional Cognition Training Functional Mobility Patient/Family Education Discharge Planning Discharge Recommendations OT Discharge Recommendations Home with 25/09 Assist Home Equipment Needs RTS, shower chair
[2018-04-13] MEDS: ASPIRIN EC 81 MG TABLET PO (22:08)
[2018-04-13] MEDS: PANTOPRAZOLE 20 MG TABLET PO (22:09)
[2018-04-13] MEDS: SENNOSIDES 8.6 MG TABLET 17.2 MG PO (22:09)
--- NOTE | 2018-04-13 23:28 | PC.NURSE ---
Blister to left hip, lateral to gauze/tegaderm drsg, r/t tegaderm; flushed with NS, hydrogel to lesion, skin prep and bandage
[2018-04-13] MEDS: diazePAM 5 MG TABLET PO (23:55)
--- NOTE | 2018-04-14 00:18 | PC.NURSE ---
Addendum entered by Suyapa Stephens R.N. 04/14/18 05:49: States pain is currently 5/10 so medicated with Oxycodone + Vistaril. Worried about not having had a BM but states he did start passing more flatus this morning. Original Note: Patient is alert and oriented. Breath sounds CTA with RA sat of 97%. HRR. Denies nausea. BT hypoactive and has passed flatus and small amounts of stool (per patient very little) and abdomen is firm to touch. Voiding without problems following catheter removal yesterday; denies dysuria, frequency, urgency. HO dressing to back is intact with approx 50% saturated with sanguinous drainage; outlined. Dressings to left hip are CDI. Complained of 6/10 pain at shift change but now states pain has improved and is 3/10 but wanting something more for spasms so medicated with Diazepam after lengthy discussion re pros/cons of different pain medications. Able to turn self in bed and is assist by 1 when out of bed; does use walker. Non pitting edema present in right LE. Some numbness/tingling present in right foot and up leg to mid romo. Discussed importance of SCD's and is agreeable to trying them when back to bed; is currently sitting up in chair. Fall risk score is high and bed/chair alarm is activated.
[2018-04-14 04:40] VITALS: BP 144/74; PULSE 88; RESP 19; TEMP 36.5; O2SAT 99
[2018-04-14] MEDS: ALBUTEROL HFA 60 PUFF/8 GM INH INH (05:40)
[2018-04-14 05:41] VITALS: PULSE 87; RESP 18; O2SAT 97
[2018-04-14] MEDS: hydrOXYzine pamoate 25 MG CAPSULE PO ×2 (05:45→10:14)
[2018-04-14] MEDS: OXYCODONE IR 5 MG TABLET PO ×3 (05:45→15:34)
[2018-04-14 06:28] LABS: Hematocrit 24.4 % (41-53); Hemoglobin 8.4 g/dL (13.5-17.5)
--- NOTE | 2018-04-14 08:31 | PM.PN.1 ---
Subjective Interval history: Interval history Consult by Dr. Sherman Terrazas 04/12/2018 Patient is a 67-year-old male status post two-stage lumbar laminectomy and fusion by Dr. Francisco Javier Demarco. Hospitalist asked to see patient due to concern about his history of hyponatremia. Patient also has had several episodes of hypotension with BP as low as 77/53 and earlier this morning 04/12/2018 it was 95/59. Also noted febrile with temp of 102? but subsequently defervesced. Nurses felt he was confused earlier today but subsequently seems to have cleared up. He has history of hypertension. He has recent history of severe hyponatremia. Patient states his serum sodium was as low as 118 with symptoms of severe confusion requiring hospital management. This was a couple of months ago. [employer] recommended he restrict his fluids to 40 oz a day. Patient states he has been successful maintaining his sodium in the range of 133-134 with fluid restriction. Mainly he has been restricting to 50 oz a day. Patient also reports recent problems with unexplained hypotension. Patient states his blood pressure normally runs in the 120s. States his blood pressure several times got as low as 70 systolic associated with syncope or near-syncope and tunnel vision. This was apparently evaluated at ER/hospital but does not seem like any medications were adjusted. He is on lisinopril 10 mg daily and terazosin 10 mg at bedtime (also for BPH). Patient does have obstructive sleep apnea and compliant with CPAP. Current complaint is of some discomfort in his back and anxiety regarding his low sodium levels and blood pressure 04/13/2018 When seen he was up chair with no complaints other than not having a bowel movement. There was no abdominal pain nausea vomiting. His discharge was held by Ortho because lack of bowel 04/14/2018 Still states he has had minimal stool. He has passed flatus. Again he denies nausea vomiting abdominal pain. He has no shortness of breath, palpitation, presyncope, chest discomfort Exam Vital Signs (past 8 hours): - 04/14/18 04:40 04/14/18 05:41 Temperature 97.7 F Pulse Rate 88 87 Respiratory Rate 19 18 Blood Pressure 144/74 H Pulse Oximetry 99 97 Fraction of Inspired Oxygen 21 Oxygen Delivery Method Room Air Oxygen Flow Rate 0 Narrative Exam Narrative: GENERAL: Alert male sitting in chair and in no acute distress, conversant, cooperative HEAD: Atraumatic. Normocephalic. EYES: Pupils equal, round and reactive. Extraocular motions intact. OROPHARYNX: moist mucosa NECK: Trachea midline. No JVD or lymphadenopathy. CARDIOVASCULAR: Regular rate and rhythm with soft aortic sclerosis murmur, no gallop or rub RESPIRATORY: Clear to auscultation bilaterally. GASTROINTESTINAL: Abdomen obese, slightly distended, soft to slightly firm, non-tender. No palpable masses. EXTREMITIES: No edema. NEUROLOGICAL: Alert, well oriented, speech is intact, normal bilateral upper and lower extremity strength SKIN: warm, dry, no rash Objective Labs Result Diagrams: 04/14/18 05:49 04/13/18 06:51 Labs: Laboratory Results - last 24 hr 04/14/18 05:49 Hgb 8.4 L Hct 24.4 L
[2018-04-14 08:35] VITALS: BP 135/73; PULSE 89; RESP 18; TEMP 37.1; O2SAT 96
[2018-04-14] MEDS: POLYETHYLENE GLYCOL 3350 17 GM POWD.PACK PO (10:13)
[2018-04-14] MEDS: FLUTICASONE 120 SPRAY/16 GM SPRAY.SUSP NASAL (10:13)
[2018-04-14] MEDS: GABAPENTIN 300 MG CAPSULE 900 MG PO ×2 (10:14→15:34)
[2018-04-14] MEDS: CELECOXIB 200 MG CAPSULE PO (10:14)
[2018-04-14] MEDS: MULTIVITAMIN 1 TABLET 1 TAB PO (10:15)
[2018-04-14] MEDS: DOCUSATE 100 MG CAPSULE PO (10:15)
[2018-04-14] MEDS: NIACIN 500 MG TAB ER 1000 MG PO (10:15)
[2018-04-14] MEDS: LORATADINE 10 MG TABLET PO (10:15)
[2018-04-14] MEDS: SODIUM CHLORIDE 0.9% FLUSH 10 ML IV (10:16)
[2018-04-14 11:59] VITALS: BP 140/70; PULSE 92; RESP 20; TEMP 37; O2SAT 94
--- NOTE | 2018-04-14 13:07 | P.DS_ITS ---
History of Present Illness Date Patient Seen: 04/14/18 Time Patient Seen: 08:10 Chief complaint: Lumbar Fusion Narrative: The patient has a history of chronic back pain and is now s/ p L1-S1, redo laminectomies & Instru posterior fusion w/bone graft with Dr. Demarco. He had hyponatremia postoperatively and was also being managed by the hospitalist service for that and was treated with fluid restriction. Postoperatively he complains of some stiffness and pain and continued numbness in his right foot but no more burning pain. He was a transition from IV to oral pain medications and tolerated p.o. diet and was appropriate for discharge home on 04/14/2018 pending a bowel movement. He is actively passing gas. Discharge Providers Date of admission: 04/09/18 06:18 Primary care physician: Chris Bolden MD Consults: 04/11/18 18:54 Consult to Occupational Therapy Evaluate & Treat Comment: Physician Instructions: Evaluate and treat Consult to Physical Therapy Evaluate & Treat Comment: Physician Instructions: Evaluate and Treat Discharge provider: Abby Bobo MD Discharge Date: 04/14/18 Summary Discharge Diagnosis: Lumbar degenerative disc disease, post lumbar laminectomy syndrome spinal stenosis at multiple lumbar regions Hospital Course: Patient was admitted to the floor postoperatively. He was initially managed on IV pain medication and had p.o. medication that he was transitioned to during the course of his stay. He was found to have hyponatremia. The hospitalist service was consulted. He was managed with fluid restriction. And his medications were reviewed. The patient was mobilized with physical therapy. And his dressing was changed as needed. Patient did complain of some constipation and his bowel regimen was increased appropriately. Once the patient was comfortable and had a bowel movement he was discharged to home. Status at Discharge Cognitive/behavioral status at discharge: Based Functional status at discharge: independent ambulation Overall status at discharge: patient is progressing back to baseline Time Spent with Patient Less than 30 minutes Time spent discussing smoking cessation with patient: 3 to 10 minutes Exam Vital Signs (past 8 hours): - 04/14/18 05:41 04/14/18 08:35 Temperature 98.8 F Pulse Rate 87 89 Respiratory Rate 18 18 Blood Pressure 135/73 Pulse Oximetry 97 96 Fraction of Inspired Oxygen 21 Oxygen Delivery Method Room Air Oxygen Flow Rate 0 Narrative Exam Narrative: General: Alert oriented male no acute distress lying in bed. HEENT exam: Normocephalic atraumatic Respiratory exam: Unlabored on room air Cardiovascular exam: Regular rate and rhythm Abdomen: Moderately distended today no tenderness to palpation Extremity: Demonstrates good strength with knee flexion extension ankle flexion and extension. Endorses sensation to light touch bilaterally. Does endorse some tingling and numbness on the right lower extremity. Endorses back pain. Spine dressing is evaluated today blanca in place. Steri-Strips additionally on the side of this. Mild drainage on the dressing proximally and no leakage be on the dressing sites. No signs or symptoms of infection Objective Labs Result Diagrams: 04/14/18 05:49 04/13/18 06:51 Labs: Laboratory Results - last 24 hr 04/14/18 05:49 Hgb 8.4 L Hct 24.4 L Discharge Plan Discharge Plan Patient Disposition: Home Discharge comment: Discharge home once bowel movement Discharge Med Rec/Prescriptions Prescriptions: New celecoxib [Celebrex] 200 mg Capsule 200 mg PO BID Qty: 30 RF: 0 sennosides [senna] 8.6 mg Tablet 17.2 mg PO BEDTIME Qty: 30 RF: 0 bisacodyl 10 mg Suppository 10 mg MT PRN PRN (Reason: Constipation) Qty: 3 RF: 0 docusate sodium 100 mg Capsule 100 mg PO BID Qty: 60 RF: 0 diazepam 5 mg Tablet 5 mg PO Q6HR PRN (Reason: Spasms) Qty: 20 RF: 0 oxycodone 5 mg Tablet 5 - 10 mg PO Q3HR PRN (Reason: Pain, Moderate (4-6)) Qty: 50 RF: 0 hydroxyzine pamoate 25 mg Capsule 25 mg PO Q4HR PRN (Reason: Nausea And Vomiting) Qty: 20 RF: 0 polyethylene glycol 3350 [Miralax] 17 gram/dose powder 17 gram PO DAILY PRN (Reason: constipation) Qty: 119 RF: 0 Continued albuterol sulfate 90 mcg/actuation Hfa Aerosol Inhaler 2 puff INHALATION BID Qty: 0 RF: 0 zolpidem [Ambien CR] 6.25 mg Tablet,Ext Release Multiphase 6.25 mg PO BEDTIME PRN (Reason: Sleep) Qty: 0 RF: 0 multivitamin Tablet 1 tab PO DAILY Qty: 0 RF: 0 diazepam [Valium] 5 mg Tablet 10 mg PO BEDTIME PRN (Reason: sleep, pain in muscles) Qty: 0 RF: 0 gabapentin [Neurontin] 600 MG tablet 1.5 tab PO TID Qty: 0 RF: 0 aspirin 81 mg Tablet,Delayed Release (Dr/Ec) 81 mg PO BEDTIME Qty: 0 RF: 0 omeprazole 20 mg Tablet,Delayed Release (Dr/Ec) 20 mg PO BEDTIME Qty: 0 RF: 0 niacin [Niaspan Extended-Release] 1,000 mg Tablet Extended Release 24 Hr 1,000 mg PO DAILY RF: 0 lisinopril 10 mg Tablet 10 mg PO QAM RF: 0 fluticasone 50 mcg/actuation [place],Suspension 2 spray INTRANASAL BID RF: 0 terazosin 10 mg Capsule 10 mg PO BEDTIME RF: 0 loratadine [Allerclear] 10 mg Tablet 10 mg PO DAILY RF: 0 Discontinued hydrocodone-acetaminophen 7.5-325 mg Tablet 1 tab PO Q6H PRN (Reason: pain) Qty: 0 RF: 0 Follow up/Referrals: Chris Bolden MD [Primary Care Provider] - Francisco Javier Demarco MD [Physician] - (10-14 days) Provider Discharge Instructions Diet: Diet as Tolerated Activity: No bending, twisting Skin/Wound/Dressing Care Report to your healthcare provider any signs of infection, such as:: chills, fever, night sweats, increased pain, unusual drainage and unusual redness Dressing: Keep dressing clean dry and intact Discharge Data Primary Care Provider: Chris Bolden Attending Provider: Francisco Javier Demarco Admit Date/Time: 04/09/18 06:18
--- NOTE | 2018-04-14 13:21 | PC.NURSE ---
Day shift: Changed dressing to Coversites per MD. Pt tolerated well. Op-site anila well approximated. No s/s of infection. Call light in reach. New dressing is dated and timed.
--- NOTE | 2018-04-14 14:20 | PT.IPTN ---
Current Diagnoses Spinal stenosis, lumbar region with neurogenic claudication (04/09/18) Postlaminectomy syndrome, not elsewhere classified (04/09/18) Strain of muscle, fascia and tendon of lower back, subsequent encounter (04/09/18) Surgery Performed Operation Date: 04/09/18 07:45 Actual Procedures p L1-L3 Anterior Fusion - Francisco Javier Demarco MD Operation Date: 04/11/18 10:45 Actual Procedures p L1-S1, redo laminectomies & Instru posterior fusion w/bone graft(Not Applicable) - Francisco Javier Demarco MD Physical Therapy Treatment Note M2 PT-IP Current Condition Start: 04/09/18 16:00 Freq: NEEDED Status: Active Protocol: Document 04/12/18 09:30 HH (Rec: 04/12/18 11:05 HH [email or web address]) Physical Therapy Current Condition Current Condition Evaluation Date 04/12/18 Treatment Diagnosis L1-L4 posterior fusion, L5S1 TLIF Onset Date 04/12/18 Precautions Lumbar Precautions Log Roll No Twisting Limit Bending Lifting Restriction of 10 lbs Gait Belt above Incisional Area Weight Bearing Status Weight Bearing Status Weight Bear as Tolerated M3 PT-IP Subjective Start: 04/09/18 16:00 Freq: NEEDED Status: Active Protocol: Document 04/14/18 14:20 GGD (Rec: 04/14/18 15:34 GGD [email or web address]) Subjective Physical Therapy Visit Type Type Treatment Note Visit Start Time 13:55 Visit Stop Time 14:20 Total Visit Minutes 25 Number of NEWSPAPER JOURNALIST Visits 4 Physical Therapy Visit Comments Patient Comments Pt states he needs to walk and then use the bathroom. Therapy Pain Assessment Pain When Pain Assessed At Rest Pain Present Pain Present Pain Reported M4 PT-IP Mobility and Gait Start: 04/09/18 16:00 Freq: NEEDED Status: Active Protocol: Document 04/14/18 14:20 GGD (Rec: 04/14/18 15:34 GGD [email or web address]) PT-Transfer Assessment Sit to and From Stand Sit to and from Stand Standby Assistance Use of Upper Extremities Equipment Transfer Assistive Device Gait Belt Front Wheeled Walker Orthotic/Prosthetic Devices or Brace: No Transfers Transfer Destination Toilet Transfer Ability Level of Assist Standby Assistance 1 Person Assistance Use of Upper Extremities Gait Assessment Gait Gait Assistance Required: Contact Guard Assist 1 Person Assist Distance (Feet) 800 Able to Maintain Weight Bearing Status Yes During Gait Assistive Devices Assistive Device Gait Belt Front Wheeled Walker Orthotic/Prosthetic Devices or Brace: No Gait Deviations General Gait Pattern Decreased Stride Length Decreased Feet Clearance Step-to Gait Factors Limiting Gait Function Factors Limiting Gait Function Decreased Sensation Decreased Strength Limited Range of Motion Pain Poor Safety Awareness M5 PT-IP Objective Assessments Start: 04/09/18 16:00 Freq: NEEDED Status: Active Protocol: Document 04/12/18 09:30 HH (Rec: 04/12/18 11:05 HH [email or web address]) Orientation Orientation/Cognition Level of Alertness Alert Orientation Name Age Birthday Date Situation Language Function Ability No Deficits Noted Safety Awareness Decreased Safety Awareness Gross Range of Motion Lower Extremity ROM Assessment Within Functional Limits Strength Lower Extremity Strength Assessment Within Functional Limits Coordination Assessment Gross Coordination Gross Coordination WNL Sensation Assessment Sensation Gross Sensation WNL Muscle Tone Muscle Tone WNL Yes M6 PT-IP Treatment Start: 04/09/18 16:00 Freq: NEEDED Status: Active Protocol: Document 04/14/18 14:20 GGD (Rec: 04/14/18 15:34 GGD [email or web address]) Physical Therapy Treatment Education Education Provided Precautions Safety M7 PT-IP Assessment and Plan Start: 04/09/18 16:00 Freq: NEEDED Status: Active Protocol: Document 04/14/18 14:20 GGD (Rec: 04/14/18 15:34 GGD [email or web address]) PT Summary Assessment and Plan Summary Assessment Summary Pt improving with gait and balance. He had decrease UE support on FWW. He was able to safely transfer and no LOB with mobility. He did need cues for sit to stand and hip hinge. Pt safe for home D/C when medically stable. Frequency of Treatment Frequency Of Treatment Twice a Day Recommendations To Nursing Amount of Assist Needed 1 Person Assist Discharge Recommendations PT Discharge Recommendations Home with Assistance
--- NOTE | 2018-04-14 14:27 | CM.DPC ---
DCP: continued: pt now has been ok'd for d/c to home by hospitalist/consulting and rounding ortho: Dr. Leslie. Met with him after discussing d/c issues with SAE Cruz. Pt was found on phone, expressing anxiety re ability to get his medications before going home as limited hours related to weather and Sunday. He also noted his bowels had not fully emptied today. After some discussion: assisted him with a call to [facility] in [place]. Spoke with pharmacist Kenny (? spelling) who stated that they were open until 1800, was ok for pt's son to pick the medication up as long as he brings the scripts. He requested a fax of face sheet with Medicare and [employer] information/is faxed now, and clarity re a Medicare Pt D options (pt does not have). He is aware that pt requests that all the medications be billed to [employer] even if over the counter. Pt and SAE Lopez are updated and pt states he is very relieved and I now feel ready to go. He has called his son who works in [employer] and gets off at 1430 and the son will be here shortly. MILTON # 3 is presented. Pt has been very distracted re all this so he requests that a verbal confirmation of MILTNO understanding be noted/done I am fine to leave today since I know I can get my medications. SCHOOL COUNSELOR is helping him mobilize about the unit in prep for his d/c today (pt is also ambulating with [employer] staff/SBA)
[2018-04-14 15:15] VITALS: BP 90/57; PULSE 84; RESP 18; TEMP 37.1; O2SAT 96
--- NOTE | 2018-04-14 17:20 | PC.NURSE ---
Nadine shift note: Discharge instructions given to patient, discussed importance of F/U, activity, and home safety. Patient son Dejon, picked up prescriptions. Patient and son verbalized understanding of discharge instructions. Patient ambulated with FWW to , this repairer sash and door patient son via private vehicle.
--- NOTE | 2018-04-18 | PATH_ITS ---
[facility] Accession Number: [id number] . 01 Material submitted: . L5-S1 FACET CYST . 01 Clinical history: . L5-S1 FACET CYST . 01 Diagnosis: L5-S1 Facet Cyst, Biopsies: Bone and fibroconnective tissue with reactive and degenerative cystic changes. Hyperplastic synovitis with degenerative changes and areas with features of pseudogout also present. Negative for malignancy. MRV/04/16/2018 . 01 Comment: This case has also been reviewed by Dr. Trang Cuenca, who concurs with the diagnosis. . 01 Electronically signed: . Amada Breen MD, Pathologist NPI- [id number] . 01 Gross description: . L5-S1 FACET CYST: Received in formalin are 2 pieces of SOFT TISSUE measuring 0.6 x 0.5 x 0.5 cm and 0.5 x 0.5 x 0.3 cm which are inked, bisected and submitted in toto in 2 cassettes. /CKI /CKI . 01 Pathologist provided ICD-10: M85.60 . 01 CPT . 388101 Specimen Comment: A duplicate report has been generated due to demographic updates. Performed at: 01 [facility] [address] [place] [address] [address] [facility] [place] [facility] [place], [place], [place] [id number] MD Jaime Roland MD Phone: [phone]
== END 2018-04-14 16:45 | disposition home or self-care (01) | DRG 454 ==
PROVIDERS: Internal Medicine; Nurse Practitioner Gerontology; Admitting Provider Orthopaedic Surgery; PCP Internal Medicine; Visit Provider Orthopaedic Surgery
PROC: 0SG00A0 Fusion of Lumbar Vertebral Joint with Interbody Fusion Device, Anterior Approach, Anterior Column, Open Approach (ICD-10-PCS; CPT 22558; principal; 2018-04-09 07:45)
PROC: 0SG1071 Fusion of 2 or more Lumbar Vertebral Joints with Autologous Tissue Substitute, Posterior Approach, Posterior Column, Open Approach (ICD-10-PCS; principal; 2018-04-11 10:45)
DX: M48.062 Spinal stenosis, lumbar region with neurogenic claudication (principal); E87.1 Hypo-osmolality and hyponatremia; M96.1 Postlaminectomy syndrome, not elsewhere classified; S39.012D Strain of muscle, fascia and tendon of lower back, subsequent encounter; I10 Essential (primary) hypertension; E78.5 Hyperlipidemia, unspecified; K21.9 Gastro-esophageal reflux disease without esophagitis; F32.9 Major depressive disorder, single episode, unspecified; G47.33 Obstructive sleep apnea (adult) (pediatric); I95.9 Hypotension, unspecified; R50.9 Fever, unspecified; K59.00 Constipation, unspecified
CPT/HCPCS: 36415; 72100; 76000; 80048; 81001; 82962; 85014; 85018; 85025; 88304; 94640; 94760; 94762; 97116; 97162; 97165; 97530; 97535; C1776; J0131; J0330; J0595; J0690; J1100; J1170; J2060; J2250; J2274; J2405; J2704; J3010; J3410; J7613

== ENCOUNTER 2019-03-07 10:28 | Inpatient (IN) | payer MEDICARE, OTHER, SELFPAY ==
[2018-04-09 13:47] VITALS: BMI 30.2
[2019-02-25 12:46] VITALS: BMI 30.5
[2019-03-07] VITALS (16 sets, daily range): BP systolic 82–163; BP diastolic 31–96; PULSE 76–100; RESP 10–19; TEMP 36.2–36.9; O2SAT 89–99; BMI 29.0
--- NOTE | 2019-03-07 | DI.RAD.S_ITS ---
PROCEDURE: XR LUMBAR SPINE 2-3V INDICATIONS: L5-S1 HARDWARE REMOVAL, W/NEW SCREW INSERTION TECHNIQUE: 2 operative views of the lumbar spine were acquired. COMPARISON: [facility], JUDD, XR LUMBAR SPINE 2-3V, 04/11/2018, 11:56. FINDINGS: Operative imaging utilized during revision of lumbosacral fusion hardware. IMPRESSION: Operative imaging utilized during lumbar fusion revision surgery. Dictated by: Edward Clay M.D. on 03/07/2019 at 14:36 Approved by: Edward Clay M.D. on 03/07/2019 at 14:40
[2019-03-07] MEDS: LACTATED RINGERS 1,000 ML 42 ML IV (11:16)
--- NOTE | 2019-03-07 11:30 | PM.PREOP ---
Pre-operative Note Interval Note History & Physical reviewed/Exam performed by Physician: Yes Changes to H&P: No
--- NOTE | 2019-03-07 11:39 | P.OP_ITS ---
Operative Date/Time/Diagnoses Date of procedure: 03/07/19 Time of procedure: 14:25 Pre-op diagnosis: Lumbar pseudoarthrosis Post-op diagnosis: same Procedure & Clinicians Procedure: L5-S1 fusion exploration L5-S1 screw removal with placement of larger screws Iliac crest bone graft aspirate Same procedure as scheduled: Yes Indications: [age] year old male with a previous lumbar fusion and pseudoarthrosis at the L5-S1 level. This was symptomatic and it was felt that he would benefit from revision fusion. Risks and benefits of surgery were discussed and appropriate consents were obtained. Surgeon: Francisco Javier Demarco Order Selector: Ina Erazo Anesthesia Type: General Operative Notes Findings: None Closure Type: primary Specimen(s): none sent Prosthetic devices, grafts, tissues, transplants, or devices: NuVasive Reline screws Applied: catheter Estimated Blood Loss (mL): 30 Procedure in detail: Patient was brought to the operating room and intubated on the stretcher. The rolled over to the well-padded prone position on the Ricky table. A time-out was performed. Antibiotics were given. Back was prepped and draped in the standard sterile fashion. Using fluoroscopy for localization, we made two 5 cm incisions at the bottom of his previous incisions. Bovie used to come down to and split the fascia. We exposed our old hardware. We verified our level. We then used a metal cutting bur to cut the rods between L4 and L5 on both sides. The set screws were removed. The rods were removed. We then placed a lamina labelling machine operator across the screws and confirmed motion and nonunion. We placed guidewires down the old screws of L5 and S1 and then removed the pedicle screws. We continued our dissection out laterally to expose the facet and lateral gutter. A bur was used to decorticate around the facet as well as the sacral ala and the L5 transverse processes. The wounds were irrigated. We then went up a size in our screws and reinserted new screws at L5 (7.5mm) and S1 (9.5mm). Position was confirmed with fluoroscopy and neural monitoring. A new short red was placed and locked down with the set screws. A small stab incision was made over the right PSIS and Jamshidi needle was in serted into the iliac crest. 10 mL of bone marrow was aspirated through this. This was then mixed with Osteocel and bone chips and placed in the posterior and posterolateral gutter for the posterior fusion at L5-S1. The fascia was then closed in layers. The superficial tissues closed then the skin was closed. Sterile dressings were placed. They were then rolled over, extubated, and brought to recovery room without complications. Complications: none Post-operative Condition: stable Disposition: PACU Plan for aftercare: Inpatient. Up with PT.
[2019-03-07] MEDS: CEFAZOLIN 2 GM/100 ML FROZ.PIGGY IV ×2 (12:35→21:35)
[2019-03-07] MEDS: SODIUM CHLORIDE 0.9% 1,000 ML, GENTAMICIN 80 MG IRR (13:27)
[2019-03-07] MEDS: THROMBIN (RECOMBINANT) 5,000 UNIT VIAL 5000 UNIT TOP (13:27)
[2019-03-07] MEDS: VANCOMYCIN 1,000 MG VIAL 1000 MG TOP (13:28)
[2019-03-07] MEDS: BUPIVACAINE 0.25% W/ EPI (PF) 10 ML VIAL 60 ML INJ (13:42)
[2019-03-07] MEDS: BUPIVACAINE LIPOSOME 266 MG/20 ML VIAL INJ (13:44)
[2019-03-07] MEDS: OXYCODONE/ACETAMINOPHEN 5/325 TABLET 1 TAB PO (14:52)
[2019-03-07] MEDS: ALBUTEROL 2.5 MG/3 ML NEB (ADULT) INH (14:58)
--- NOTE | 2019-03-07 15:39 | SUR.PHASEI ---
1510 - Patient has dry cough and states that he has allergies vs asthma. States he takes albuterol at home. Lungs clear. Given albuterol per orders. Patient noted to have more frequent PAC's and occasional PVC's. States he was recently worked up for extra heart beats and had an echocardiogram. Asymptomatic at this time. Dr. Harris updated on PAC's and PVC's. Stated he would order a BMP to be drawn when patient goes to his room, denied need for Telemetry monitoring in acute care. 1530 - Patient taken up to room 216 in stable condition. Report given to receiving SAE Turner. Notified receiving RN that she should have orders for a BMP to be drawn. All belongings sent up with patient including CPAP.
[2019-03-07] MEDS: GABAPENTIN 600 MG TABLET 900 MG PO ×2 (15:58→21:39)
[2019-03-07] MEDS: ACETAMINOPHEN 325 MG TABLET 650 MG PO ×2 (15:59→21:40)
[2019-03-07] MEDS: hydrOXYzine pamoate 25 MG CAPSULE PO (15:59)
[2019-03-07] MEDS: LACTATED RINGERS 1,000 ML 125 ML IV (16:19)
[2019-03-07] MEDS: HYDROMORPHONE 0.5 MG INJ IV ×3 (16:43→21:45)
[2019-03-07] MEDS: NEOMYCIN/POLY/BACITRACIN 3.5 GM OPHTH OINT 1 APPLIC EYE-RIGHT (18:11)
[2019-03-07 18:36] LABS: Blood Urea Nitrogen 18 mg/dL (9-20); Carbon Dioxide 21 mmol/L (22-32); Chloride 99 mmol/L (98-107); Estimated Glomerular Filt Rate > 60.0 mL/min (>60); Glucose 126 mg/dL (80-110); HEMOLYSIS < 15 (0-50); Sodium 132 mmol/L (137-145)
[2019-03-07] MEDS: FLUTICASONE 120 SPRAY/16 GM SPRAY.SUSP NASAL (21:37)
[2019-03-07] MEDS: PANTOPRAZOLE 20 MG TABLET PO (21:39)
[2019-03-07] MEDS: SENNOSIDES 8.6 MG TABLET 17.2 MG PO (21:41)
[2019-03-07] MEDS: ASPIRIN EC 81 MG TABLET PO (21:43)
[2019-03-07] MEDS: CELECOXIB 200 MG CAPSULE PO (21:43)
[2019-03-07] MEDS: TERAZOSIN 5 MG CAPSULE 10 MG PO (21:44)
[2019-03-07] MEDS: DOCUSATE 100 MG CAPSULE PO (21:44)
--- NOTE | 2019-03-07 22:33 | PC.NURSE ---
Pt came up from PACU with a swollen right eyelid, red eyeball and tearing. He denied any vision impairment. Using a pen light, I inspected the eye ball, but he refused 2/2 pain. He was quite upset and wanted to see Dr. Demarco or an eye doctor. group controller contacted who wrote for Neosporin Ophth which provided some relief, along with 0.5 mg IVP Dilaudid. Pt decided he could wait until the am until his eye was examined. Pt rates his R foot (hx of fx) a 7/10, his back 3/10 and his R eye 6/10. Pt states he may be OCD or have Asperger's. He was very preoccupied with all matters pertaining to his care. Moderate amount of break through bleeding on arrival to unit, but has slowed greatly and dressing was reinforced.
[2019-03-07] MEDS: ALBUTEROL HFA 60 PUFF/8 GM INH INH (22:35)
[2019-03-08] MEDS: LACTATED RINGERS 1,000 ML 125 ML IV (01:45)
[2019-03-08] MEDS: CEFAZOLIN 2 GM/100 ML FROZ.PIGGY IV (04:25)
[2019-03-08 06:00] LABS: Hematocrit 30.4 % (41-53); Hemoglobin 10.5 g/dL (13.5-17.5)
[2019-03-08] MEDS: OXYCODONE IR 5 MG TABLET PO ×2 (06:09→16:44)
[2019-03-08 06:10] LABS: Blood Urea Nitrogen 20 mg/dL (9-20); Calcium 8.9 mg/dL (8.4-10.2); Carbon Dioxide 23 mmol/L (22-32); Chloride 98 mmol/L (98-107); Estimated Glomerular Filt Rate > 60.0 mL/min (>60); Glucose 172 mg/dL (80-110); HEMOLYSIS < 15 (0-50); Potassium 4.3 mmol/L (3.4-5.1); Sodium 130 mmol/L (137-145)
--- NOTE | 2019-03-08 08:26 | PM.PNPO.1 ---
Subjective Subjective Date Patient Seen: 03/08/19 Time Patient Seen: 08:26 Interval history: He is doing quite well. Minimal pain across the back. Leg is doing fine at rest. However, he has not been out of bed yet Exam Vital Signs (past 8 hours): Oxygen Delivery Method Room Air Oxygen Flow Rate 0 Const Orientation: alert and oriented x3 Other: Moderate drainage, dressing has been reinforced. 5/5 motor both lower extremities. Objective Labs Result Diagrams: 03/08/19 05:25 03/08/19 05:25 Labs: Laboratory Results - last 24 hr 03/07/19 03/08/19 03/08/19 17:57 05:25 05:25 Hgb 10.5 L Hct 30.4 L Sodium 132 L 130 L Potassium 4.0 4.3 Chloride 99 98 Carbon Dioxide 21 L 23 BUN 18 20 Creatinine 1.00 1.00 Estimated GFR > 60.0 > 60.0 BUN/Creatinine Ratio 18.0 20.0 Glucose 126 H 172 H Calcium 10.0 8.9 Assessment & Plan Post-op Postoperative Procedures: Procedures Operation Date: 03/07/19 12:15 Actual Procedures Side Surgeon p Lumbar L5 & S1 hardware removal w/ new screw insertion & bone grafting Francisco Javier Demarco MD Stable after revision fusion. We will get him up today moving with physical therapy. If he does well he could be discharged this afternoon, may require 1 more day. He has a history of hyponatremia. He was 134, and is now down to 130. I will stop his IV fluids. He normally manages this with fluid restriction at home and will do this in the hospital as well. Quality VTE Deep Vein Thrombosis/Pulmonary Embolism Present on Admission: No
[2019-03-08 09:00] VITALS: BP 151/82; PULSE 82; RESP 18; TEMP 36.7; O2SAT 97
[2019-03-08] MEDS: NIACIN 500 MG TAB ER 1000 MG PO (09:26)
[2019-03-08] MEDS: MULTIVITAMIN 1 TABLET 1 TAB PO (09:26)
[2019-03-08] MEDS: LORATADINE 10 MG TABLET PO (09:26)
[2019-03-08] MEDS: ALBUTEROL HFA 60 PUFF/8 GM INH INH (09:27)
[2019-03-08] MEDS: LISINOPRIL 10 MG TABLET PO (09:27)
[2019-03-08] MEDS: CELECOXIB 200 MG CAPSULE PO (09:27)
[2019-03-08] MEDS: GABAPENTIN 600 MG TABLET 900 MG PO ×2 (09:27→15:07)
[2019-03-08] MEDS: DOCUSATE 100 MG CAPSULE PO (09:27)
[2019-03-08] MEDS: FLUTICASONE 120 SPRAY/16 GM SPRAY.SUSP NASAL (09:28)
--- NOTE | 2019-03-08 09:55 | PT.IIE ---
Surgery Performed Operation Date: 03/07/19 12:15 Actual Procedures p Lumbar L5 & S1 hardware removal w/ new screw insertion & bone grafting - Francisco Javier Demarco MD Surgical History (Last Updated 02/25/19 @ 12:51 by Liana Olguin, SAE) H/O prostate biopsy (Acute) History of ankle surgery (Acute ~2006) History of biopsy (Acute 05/07/17) History of nasal surgery (Acute 05/07/17) History of vasectomy (Acute) Hx of hemorrhoidectomy (Acute) Hx of laminectomy (Acute 06/12/06) S/P lumbar fusion (Acute 04/09/18) Status post left foot surgery (Acute) Medical History (Last Updated 04/05/18 @ 14:37 by Liana Olguin RN) Anxiety (Acute) Asthma (Acute) Cervical spinal stenosis (Acute) Cough (Acute) Depression (Acute) Essential hypertension (Acute) GERD (gastroesophageal reflux disease) (Acute) Hypercholesterolemia (Acute) Hyponatremia (Acute) Hyponatremia with decreased serum osmolality (Acute) Infection of lumbar spine (Acute) Left cuboid fracture (Acute) Nasal polyps (Acute) Neuropathy (Acute) Numbness (Acute) ESTEFANIA on CPAP (Acute) Prostatitis (Acute) Right tibial fracture (Acute) Spinal stenosis (Acute) Urethral stricture (Acute) Physical Therapy Inpatient Evaluation/Re-Eval M1 PT/OT-IP Prior Functional Status Start: 03/08/19 11:54 Freq: NEEDED Status: Active Protocol: Document 03/08/19 09:55 AB (Rec: 03/08/19 12:06 AB [id number]) Medical Review Prior Functional Status Medical History Reviewed Yes Communication able to make needs known Mobility and Gait pt stated that he is modified independent with all mobilities and ambulation without AD Social History Household Members children,other Living Arrangements House Number of Floors (Floors) Two Floors Number of Stairs To Enter/Railing? has 1/2 step to enter the house has 6steps L rail ascending + landing+5 steps R rail ascending to bedroom level Home Environment Standard Height Toilet,Walk in Shower,Built-In Shower Seat Home Equipment Front Wheel Walker,Crutches, Hand Held Shower,Grab Bars In Shower Employment Status Retired Additional Social History Comment pt lives with his ex- and son M2 PT-IP Current Condition Start: 03/08/19 11:54 Freq: NEEDED Status: Active Protocol: Document 03/08/19 09:55 AB (Rec: 03/08/19 12:06 AB [id number]) Physical Therapy Current Condition Current Condition Evaluation Date 03/08/19 Treatment Diagnosis s/p L5S1 fusion revision; difficulty in walking Onset Date 03/07/18 Precautions Lumbar Precautions Log Roll,No Twisting,Limit Bending,Lifting Restriction of 10 lbs,Gait Belt above Incisional Area M3 PT-IP Subjective Start: 03/08/19 11:54 Freq: NEEDED Status: Active Protocol: Document 03/08/19 09:55 AB (Rec: 03/08/19 12:06 AB [id number]) Subjective Physical Therapy Visit Type Type Initial Evaluation Visit Start Time 09:55 Visit Stop Time 10:46 Total Visit Minutes 51 Number of AUDIO TAPE LIBRARIAN Visits 0 Physical Therapy Visit Comments Patient Comments pt agreeable to do PT Therapy Pain Assessment Pain When Pain Assessed At Rest Pain Present Pain Present Pain Reported Location Right Eye Intensity 2 Scale Used Numeric (1 - 10) Pain Management Techniques Re-positioning,Timing of Activity with Medications M4 PT-IP Mobility and Gait Start: 03/08/19 11:54 Freq: NEEDED Status: Active Protocol: Document 03/08/19 09:55 AB (Rec: 03/08/19 12:06 AB [id number]) PT-Bed Mobility Assessment Rolling Type of Rolling Log Rolling Level of Assist Independent Supine to Sit Supine to Sit Independent Sit to Supine Sit to Supine Independent PT-Transfer Assessment Sit to and From Stand Sit to and from Stand Standby Assistance Equipment Transfer Assistive Device Bed Rail,Front Wheeled Walker Orthotic/Prosthetic Devices or Brace: No Transfers Transfer Destination Chair Transfer Technique ambulated using FWW Transfer Ability Level of Assist Standby Assistance,Contact Guard Assistance,1 Person Assistance,Use of Upper Extremities Gait Assessment Gait Gait Assistance Required: Standby Assistance,Contact Guard Assist Distance (Feet) 250 Able to Maintain Weight Bearing Status Yes During Gait Assistive Devices Assistive Device Gait Belt,Front Wheeled Walker Orthotic/Prosthetic Devices or Brace: No Factors Limiting Gait Function Factors Limiting Gait Function Decreased Activity Tolerance, Decreased Strength,Pain,Poor Balance Stair Climbing Assessment Evaluation Level of Assist On Stairs Standby Assistance,Contact Guard Assistance Devices Stair Climbing Assistive Devices Front Wheel Walker,Left Railing,Right Railing Technique/Endurance Stair Climbing Direction Ascend and Descend Stair Climbing Technique Step Over Step Number of Steps Climbed 3 Query Text: Stair Climbing Set # Repetitions (reps) 2 Comments Stair Climbing Comments completed up/down platform step x 2 reps SBA to CGA using FWW completed up/down 3 steps using L rail only and then R rail only SBA to CGA PT-Balance Assessment Sitting Balance and Reactions Static Sitting Balance Ability Good Dynamic Sitting Balance Ability Good Standing Balance and Reactions Static Standing Balance Ability Good Dynamic Standing Balance Ability Fair Device Used FWW M5 PT-IP Objective Assessments Start: 03/08/19 11:54 Freq: NEEDED Status: Active Protocol: Document 03/08/19 09:55 AB (Rec: 03/08/19 12:06 AB [id number]) Orientation Orientation/Cognition Level of Alertness Alert Orientation Name,Age,Birthday,Month,Date, Year,Day of Week,Place, Situation Safety Awareness Understands Safety Issues Gross Range of Motion Lower Extremity ROM Assessment Within Functional Limits Strength Lower Extremity Strength Assessment Within Functional Limits Muscle Tone Muscle Tone WNL Yes M6 PT-IP Treatment Start: 03/08/19 11:54 Freq: NEEDED Status: Active Protocol: Document 03/08/19 09:55 AB (Rec: 03/08/19 12:06 AB [id number]) Physical Therapy Treatment Education Education Provided Precautions,Weight Bearing Status,Post-Op Packet,Safety M7 PT-IP Assessment and Plan Start: 03/08/19 11:54 Freq: NEEDED Status: Active Protocol: Document 03/08/19 09:55 AB (Rec: 03/08/19 12:06 [id number]) PT Summary Assessment and Plan Potential Rehabilitation Potential Good Status of Condition at Evaluation Stable Summary Impairments Pain,ROM,Strength,Balance, Coordination,Sensation,Tone, Cognition,Bed Mobility, Transfers,Gait,Activity Tolerance Assessment Summary pt requiring SBA to CGA with mobility and plans to go home with family to assist him. pt may go home when medically stable. Goals Bed Mobility Goal Independent Transfer Goal Independent,Front Wheeled Walker Gait Goal Independent,Front Wheel Walker Gait Distance 300 Other Goals up/down 1 steps using FWW mod I uup/down 6 steps with 1 rail mod I Days to Meet Goals 3 Frequency of Treatment Frequency Of Treatment Twice a Day Treatment Plan Physical Therapy Treatment Plan Bed Mobility Training,Transfer Training,Gait Training, Therapeutic Exercise,Balance Retraining,Post Op Education, Discharge Planning,Hot or Cold Pack,Neuromuscular Re-ed, Coordination Retraining,Manual Therapy Recommendations To Nursing Amount of Assist Needed 1 Person Assist Discharge Recommendations PT Discharge Recommendations Home with Assistance
--- NOTE | 2019-03-08 10:04 | OT.IP.EVAL ---
Surgery Performed Operation Date: 03/07/19 12:15 Actual Procedures p Lumbar L5 & S1 hardware removal w/ new screw insertion & bone grafting - Francisco Javier Demarco MD Past Medical History (Last Updated 04/05/18 @ 14:37 by Liana Olguin RN) Anxiety (Acute) Asthma (Acute) Cervical spinal stenosis (Acute) Cough (Acute) Depression (Acute) Essential hypertension (Acute) GERD (gastroesophageal reflux disease) (Acute) Hypercholesterolemia (Acute) Hyponatremia (Acute) Hyponatremia with decreased serum osmolality (Acute) Infection of lumbar spine (Acute) Left cuboid fracture (Acute) Nasal polyps (Acute) Neuropathy (Acute) Numbness (Acute) ESTEFANIA on CPAP (Acute) Prostatitis (Acute) Right tibial fracture (Acute) Spinal stenosis (Acute) Urethral stricture (Acute) Surgical History (Last Updated 02/25/19 @ 12:51 by Liana Olguin RN) H/O prostate biopsy (Acute) History of ankle surgery (Acute ~2006) History of biopsy (Acute 05/07/17) History of nasal surgery (Acute 05/07/17) History of vasectomy (Acute) Hx of hemorrhoidectomy (Acute) Hx of laminectomy (Acute 06/12/06) S/P lumbar fusion (Acute 04/09/18) Status post left foot surgery (Acute) Occupational Therapy Inpatient Evaluation/Re-Eval M1 PT/OT-IP Prior Functional Status Start: 03/08/19 13:19 Freq: NEEDED Status: Active Protocol: Document 03/08/19 10:04 [facility] (Rec: 03/08/19 13:42 [facility] [id number]) Medical Review Prior Functional Status Medical History Reviewed Yes Communication able to make needs known Mobility and Gait pt stated that he is modified independent with all mobilities and ambulation without AD Activities of Daily Living and IADL's Pt states prior able to do all ADL's and IADL's on his own. Social History Household Members children,other Living Arrangements House Number of Floors (Floors) Two Floors Number of Stairs To Enter/Railing? has 1/2 step to enter the house has 6steps L rail ascending + landing+5 steps R rail ascending to bedroom level Home Environment Standard Height Toilet,Walk in Shower,Built-In Shower Seat Home Equipment Front Wheel Walker,Crutches, Hand Held Shower,Grab Bars In Shower Employment Status Retired Additional Social History Comment pt lives with his ex- and son M2 OT-IP Current Condition Start: 03/08/19 13:19 Freq: Status: Active Protocol: Document 03/08/19 10:04 [facility] (Rec: 03/08/19 13:42 [facility] [id number]) Occupational Therapy Current Condition Current Condition Evaluation Date 03/08/19 Treatment Diagnosis Lumbar pseudoarthrosis, s/p L5 -S1 screw removal Diagnosis Onset Date 03/07/19 Post Operative Precautions Lumbar Precautions Log Roll,No Twisting,Limit Bending,Lifting Restriction of 10 lbs,Gait Belt above Incisional Area Weight Bearing Status Weight Bearing Status Weight Bear as Tolerated M3 OT- IP Subjective and Pain Start: 03/08/19 13:19 Freq: Status: Active Protocol: Document 03/08/19 10:04 [facility] (Rec: 03/08/19 13:42 [facility] [id number]) OT- Subjective Occupational Therapy Visit Type Type Initial Evaluation Visit Start Time 10:04 Visit Stop Time 10:57 Total Visit Minutes 53 Occupational Therapy Visit Comments Patient Comments Pt cooperative and able to participate in OT/PT eval. Patient/Caregiver Goals To go home when medically stable. OT Pain Assessment Pain When Pain Assessed At Rest Pain Present Pain Present Pain Reported Location Back Intensity 3 Scale Used Numeric (1 - 10) M4 OT- IP ADL's Start: 03/08/19 13:19 Freq: Status: Active Protocol: Document 03/08/19 10:04 [facility] (Rec: 03/08/19 13:42 [facility] [id number]) OT [id number] Comments OT Self-Feeding Comments Not at meal time. OT ADL-Grooming General Evaluation Grooming Ability Standby Assistance Areas Needing Assistance Retrieving/Set-up of Grooming Items Comments OT Grooming Comments While standing, VC for back precaution safety. OT ADL-Oral Care General Eval Oral Care Ability Independent OT ADL-Dressing General Eval Lower Body Dressing Ability Standby Assistance Areas Needing Assistance Socks Comments OT Dressing Comments Pt able to comfortably cross his legs over to catrina/doff his socks. Pt states has a strategic solutions consultant and sock aid but states he does not need to use them. Educated on proper body mechanics for dressing needs. Long shoe horn issued. OT ADL-Toileting General Evaluation Toileting Ability Standby Assistance Comments OT Toileting Comments VC not to twist too much while wiping therefore to adhere to back precautions. OT ADL-Bathing Comments OT Bathing Comments NOt performed. M5 OT- IP IADL's Start: 03/08/19 13:19 Freq: Status: Active Protocol: Document 03/08/19 10:04 [facility] (Rec: 03/08/19 13:42 [facility] [id number]) OT-Instrumental Activities of Daily Living Home Safety Awareness Awareness of Need for Assistance at Home Good Awareness Meal Preparation Meal Preparation Caregiver Provides Assist Answering Service Agent Answering Service Agent Caregiver Provides Assist M6 OT- IP Functional Cognition Start: 03/08/19 13:19 Freq: Status: Active Protocol: Document 03/08/19 10:04 [facility] (Rec: 03/08/19 13:42 [facility] [id number]) Cognitive Factors Limiting Selfcare Function Cognitive Ability Level of Alertness Alert Patient Orientation Name,Place,Situation Attention Span Ability Capable of Focused Attention, Capable of Sustained Attention Ability to Follow Commands Able to Follow One Step Commands Memory Description Short Term Impaired Safety Awareness Decreased Ability to Apply Precautions,Underestimates Need for Assistance Problem Solving Ability Unable to Identify Errors Executive Function Ability Unable to Remember Details Cognitive Comments Cognitive Assessment Comments Pt needing concrete instructions and having difficulty to remember and follow back precautions for ADl and IADl needs. Went over back precautions and back sx folder given to pt. OT- Vision and Hearing OT- Hearing Assessment OT- Hearing Assessment WFL OT- Vision Assessment Visual Acuity Glasses All The Time M7 OT- IP Mobility and Balance Start: 03/08/19 13:19 Freq: Status: Active Protocol: Document 03/08/19 10:04 [facility] (Rec: 03/08/19 13:42 [facility] [id number]) OT- Bed Mobility Assessment Rolling Level of Assistance Standby Assistance Supine to Sit Supine to Sit Assist Standby Assistance OT-Transfer Assessment Sit to and From Stand Sit to and from Stand Standby Assistance Comments Mobility Comments SBA with FWW. Pt has a tendency to try to challenge himself by trying not to use the FWW or to try to squat down to reach the toilet paper . Educated pt to use the FWW at all the time as best to be safe especially since he just had surgery and important to adhere to his back precautions until the surgeon changes his status for back precautions. OT- Gait Assessment Gait Gait Assistance Required: Standby Assistance Assistive Devices Assistive Device Gait Belt,Front Wheeled Walker Comments Gait Ability Comments VC to slow down andn keep FWW in front of him. OT- Balance Assessment Sitting Balance and Reactions Static Sitting Balance Ability Normal Dynamic Sitting Balance Ability Normal Standing Balance and Reactions Static Standing Balance Ability Good M8 OT- IP Objective Assessments Start: 03/08/19 13:19 Freq: Status: Active Protocol: Document 03/08/19 10:04 [facility] (Rec: 03/08/19 13:42 [facility] [id number]) OT Gross Range of Motion Upper Extremity Range of Motion Assessment Within Functional Limits OT Strength Upper Extremity Strength Assessment Within Functional Limits M9 OT- IP Assessment and Plan Start: 03/08/19 13:19 Freq: Status: Active Protocol: Document 03/08/19 10:04 [facility] (Rec: 03/08/19 13:42 [facility] [id number]) OT Summary Assessment and Plan Potential Rehabilitation Potential Good Analytic Complexity at Evaluation Low Summary OT Impairments Functional Cognition,Bathing Progress Towards Goals Progressing Toward Goals Assessment Summary Pt low complexity and main barriers are decreased safety awareness, having trouble to remember and incorporate back precautions for needs. Pt looking to go home with family to assist. Goals Dressing Goal Independent Toileting Goal Independent Bathing Goal Independent Toilet Transfer Goal Independent Shower Transfer Goal Independent Patient/Caregiver Education Goal Demonstrate Post-Op Precautions,Caregiver Independent Assisting Patient Days to Meet Goals 1 Frequency of Treatment Frequency Of Treatment Once a Day Treatment Plan OT Treatment Plan ADL Training,Functional Cognition Training,Functional Mobility,Patient/Family Education,Discharge Planning Discharge Recommendations OT Discharge Recommendations Home with Assistance
--- NOTE | 2019-03-08 14:02 | CM.DANOTE ---
Addendum entered by NEERAJ Elena 03/08/19 15:28: ADD: Per , pt may be able to d/c home this evening via family POV after final PT assessment. Plan: SW to follow for possible pt d/c home tonight or tomorrow Sun morning after further PT assess. BF Original Note: Patient is a 68 year old male who was admitted on 03/07/19 for Lumbar Surgery. Pt has [employer] and [employer] for insurance and his PCP is Dr. Chris Bolden. EMR was reviewed. Per Ortho MD, pt tolerated procedure well and to work with therapy today towards likely d/c home tomorrow. Per PT/OT, pt mobilized well today with little pain and recommending safe d/c home with family assist and outpt PT. SW met bedside with pt and explained role and pt confirmed that he lives at home in [facility] with his ex- and adult 23 yo son and is mostly independent with ADL's at baseline. Pt has had multiple surgeries in the past and his last back surgery was in Apr 2018 and he was able to d/c home with family assist at that time. Pt has w/c, crutches, and walker DME from previous surgeries and does not anticipate any needs at d/c and preference is home with family assist and outpt PT. Pt very talkative and friendly and provides lots of unsolicited information about his hobbies and interests and plans for continuing to be active after recovering from surgery. Pt states that either his exwife or son can provide transport home at d/c. Plan: SW to follow for further PT and likely pt d/c home tomorrow via family POV and outpt PT. NEERAJ Elena Discharge Planning/Care Management Advanced directive, confirm from FAMILY Start: 03/07/19 16:09 Freq: Q24H Status: Active Protocol: Document 03/07/19 17:42 SL (Rec: 03/07/19 17:51 SL [id number]) Co-Signed By Shadia Yen RN 03/07/19 17:42 Advance Directive, confirm on record Time 17:50 Person contacted patient Copy received No CM Discharge Assessment Start: 03/08/19 13:58 Freq: Status: Active Protocol: Document 03/08/19 13:58 BF (Rec: 03/08/19 14:02 BF [id number]) Discharge Planning Assessment Assigned Hand Cooper Helper NEERAJ Quarles DPOA/Assigned Designee Name spouse Wally Advance Directives? Yes: Declined information previously History Provided By Patient,Medical Record Has Patient been admitted in last 30 No days? Prior Living Arrangements House Household Members spouse,children Type of transporation used prior to Drives own vehicle admit Comment Lives at home with his exwife and his 23 yo son Independent with ADL's Yes Is patient alert and oriented? Yes Needs Assistance With Home Chores / Shopping Caregiver for Another No Community Services used prior to Physical Therapy admission: DME Already Rented / Owned Wheelchair,FWW / Walker, Crutches Patient/Family Preference OP PT Therapy,OP OT Therapy Barriers to Discharge No Discharge Plan Home Community Services Physical Therapy,Occupational Therapy Transportation Arrangement family Referrals Initiated None needed Whiteboard Updated in Patient Room with Yes name and ext. # of Hand Cooper Helper Review Status In Process Please Provide Date Initial DC 03/08/19 Assessment Was Performed Next Review Type Continued Stay Review Pre-Anesthesia Assessment Start: 02/25/19 12:46 Freq: Status: Complete Protocol: Document 02/25/19 12:46 [facility] (Rec: 02/25/19 12:52 CAB [id number]) Pre-Anesthesia Assessment PAC Comment Pt added to surgery schedule on 02/25/19, s/p L1-3 anterior fusion 04/09/18, chart review only. Surgeon H&P not available at time of PAC assess Preferred Name Art Patient Information Reviewed Via Chart Review Primary Care Provider Chris Bolden Seen Specialist in Last 12 Months Yes Specialist Seen ENT,Milk Deliverer,Orthopedist Primary Language Hungarian Preferred Language Hungarian Laboratory Administrative Director Required No Height 172.72 cm Weight 91.172 kg Body Mass Index (BMI) 30.5 Hearing Ability Normal Visual Assist Glasses Dentition Type Teeth, Natural Present,Teeth, Missing Barriers to Learning None Other Aids Yes: CPAP Hx Anesthesia Reactions No Hx Family Anesthesia Reaction No Hx Malignant Hyperthermia No Hx Blood Transfusions No Anesthesia Review Requested No Book Repairer No alcohol intake current alcohol intake frequency a few times a month Smoking Status Never smoker Substance Use Type does not use Pain Present Pain Reported Musculoskeletal Symptoms Abnormal Gait,Back Pain, Difficulty Walking,Joint Pain, Muscle Weakness,Numbness, Radiating Pain into Limb History of Falling (Recent or History of No ) Patient is completely paralyzed or No completely immobile Mental Status Oriented to own ability Is patient on oxygen? No Does patient have CARTER/SOB Yes: Pt feels r/t inactivity Hx Sleep Apnea Yes CPAP/BIPAP use prescribed and used routinely Currently Taking a Beta Dorys No Can You Climb a Flight of Stairs Without Yes SOB Hx Chest Pain No Hx SOB Yes: Pt feels r/t inactivity Hx Syncope or Dizziness Yes: Syncope r/t hyponatremia Anti-Coagulant Therapy No Has a Psychiatric Specialist No Cardiac Testing No Hx Pacemaker/ICD No Pacemaker Rep Required? No Cardiac Clearance Received Not Applicable Diet Type At Home Regular dysphagia No Comment Water restriction 50 oz r/t kidney disease Urinary Catheter Present No Hx Urinary Self Catheterization No Diabetes No Hx Drug Resistant Organism No Presence of External or Internal Medical No Devices Have you traveled outside the [facility] in the last 30 days? Marital Status Lives With significant other,children Prior Living Arrangements House Number of Floors (Floors) Two Floors Support System Child/Children,Significant Other Does the Patient Have Assistance After Yes Surgery Patient Discharge Plan Description Return Home Feels Safe in Current Environment Yes Been Physically Hurt or Threatened By a No Person in Current Environment Do you have thoughts of harming yourself None or others? Are you currently considering suicide? No Do you have a plan to hurt yourself or No Plan others? Do You Have Any Spiritual Beliefs That No May Affect Your HC Choices? Do You Have Any Cultural Practices That No May Affect Your HC Choices? Spiritual Referral None Comment Hoahaoism Who Can We Speak to About Patient's Care Family, friends Identifying Code for Release of Patient Declines to issue Information Health Care Proxy/Next of Kin Jojo (daughter) Health Care Proxy Emergency Contact Name Wally (S.O.) Emergency Contact Advance Directives? Yes: Declined information previously Power of Seafood Processor No
--- NOTE | 2019-03-08 14:28 | PT.IPTN ---
Surgery Performed Operation Date: 03/07/19 12:15 Actual Procedures p Lumbar L5 & S1 hardware removal w/ new screw insertion & bone grafting - Francisco Javier Demarco MD Physical Therapy Treatment Note M2 PT-IP Current Condition Start: 03/08/19 11:54 Freq: NEEDED Status: Active Protocol: Document 03/08/19 09:55 AB (Rec: 03/08/19 12:06 AB [id number]) Physical Therapy Current Condition Current Condition Evaluation Date 03/08/19 Treatment Diagnosis s/p L5S1 fusion revision; difficulty in walking Onset Date 03/07/18 Precautions Lumbar Precautions Log Roll,No Twisting,Limit Bending,Lifting Restriction of 10 lbs,Gait Belt above Incisional Area M3 PT-IP Subjective Start: 03/08/19 11:54 Freq: NEEDED Status: Active Protocol: Document 03/08/19 14:28 AB (Rec: 03/08/19 15:13 AB [id number]) Subjective Physical Therapy Visit Type Type Treatment Note Visit Start Time 14:28 Visit Stop Time 14:49 Total Visit Minutes 21 Number of FOOD OR BAGGAGE HANDLING RAMPMAN Visits 0 Physical Therapy Visit Comments Patient Comments pt walking with nurses and PT took over Therapy Pain Assessment Pain When Pain Assessed At Rest Pain Present Pain Present Pain Reported Location Back Intensity 2 Scale Used Numeric (1 - 10) Pain Management Techniques Timing of Activity with Medications M4 PT-IP Mobility and Gait Start: 03/08/19 11:54 Freq: NEEDED Status: Active Protocol: Document 03/08/19 14:28 AB (Rec: 03/08/19 15:13 AB [id number]) PT-Transfer Assessment Sit to and From Stand Sit to and from Stand Standby Assistance Equipment Orthotic/Prosthetic Devices or Brace: No Gait Assessment Gait Gait Assistance Required: Standby Assistance Distance (Feet) 350 Able to Maintain Weight Bearing Status Yes During Gait Assistive Devices Assistive Device Gait Belt,Front Wheeled Walker Orthotic/Prosthetic Devices or Brace: No Factors Limiting Gait Function Factors Limiting Gait Function Decreased Activity Tolerance, Decreased Strength,Limited Range of Motion,Pain,Poor Balance,Poor Safety Awareness Comments Gait Comments pt ambulated > 350 ft using FWW SBA. pt can be impulsive and educated on safety. pt understood Stair Climbing Assessment Evaluation Level of Assist On Stairs Standby Assistance,Contact Guard Assistance,1 Person Assistance Devices Stair Climbing Assistive Devices None,Front Wheel Walker Technique/Endurance Stair Climbing Direction Ascend and Descend Stair Climbing Technique Step Over Step Number of Steps Climbed 3 Stair Climbing Set # Repetitions (reps) 1 Comments Stair Climbing Comments up/down platform step using FWW SBA; without AD SBA to CGA up/down 3 steps without rails SBA to CGA M5 PT-IP Objective Assessments Start: 03/08/19 11:54 Freq: NEEDED Status: Active Protocol: Document 03/08/19 09:55 AB (Rec: 03/08/19 12:06 AB [id number]) Orientation Orientation/Cognition Level of Alertness Alert Orientation Name,Age,Birthday,Month,Date, Year,Day of Week,Place, Situation Safety Awareness Understands Safety Issues Gross Range of Motion Lower Extremity ROM Assessment Within Functional Limits Strength Lower Extremity Strength Assessment Within Functional Limits Muscle Tone Muscle Tone WNL Yes M6 PT-IP Treatment Start: 03/08/19 11:54 Freq: NEEDED Status: Active Protocol: Document 03/08/19 14:28 AB (Rec: 03/08/19 15:13 AB [id number]) Physical Therapy Treatment Education Education Provided Precautions,Safety M7 PT-IP Assessment and Plan Start: 03/08/19 11:54 Freq: NEEDED Status: Active Protocol: Document 03/08/19 14:28 AB (Rec: 03/08/19 15:13 AB [id number]) PT Summary Assessment and Plan Potential Rehabilitation Potential Good Summary Impairments Pain,ROM,Strength,Balance, Coordination,Sensation,Bed Mobility,Transfers,Gait, Activity Tolerance Progress Towards Goals Progressing Toward Goals Assessment Summary pt progressing well with mobility and requires SBA to ambulation using FWW. pt has family to assist him at home and may go home when medically stable. Goals Bed Mobility Goal Independent Transfer Goal Independent,Front Wheeled Walker Gait Goal Independent,Front Wheel Walker Gait Distance 300 Other Goals up/down 1 steps using FWW mod I uup/down 6 steps with 1 rail mod I Days to Meet Goals 3 Frequency of Treatment Frequency Of Treatment Twice a Day Treatment Plan Physical Therapy Treatment Plan Bed Mobility Training,Transfer Training,Gait Training, Therapeutic Exercise,Balance Retraining,Post Op Education, Discharge Planning,Hot or Cold Pack,Neuromuscular Re-ed, Coordination Retraining,Manual Therapy Recommendations To Nursing Amount of Assist Needed 1 Person Assist Discharge Recommendations PT Discharge Recommendations Home with Assistance
[2019-03-08 16:15] VITALS: BP 112/76; PULSE 75; RESP 16; TEMP 36.8; O2SAT 96
--- NOTE | 2019-03-08 19:10 | PC.NURSE ---
Discharge note= Patient d/c'ed home. reviewed discharge instructions and education with patient and signed. IV lie removed and bandaid applied. patient dressed and packed up all personal belongings. Patient left via wheel chair to private car at 1840.
== END 2019-03-08 18:40 | disposition home or self-care (01) | DRG 460 ==
PROVIDERS: Anesthesiology; Admitting Provider Orthopaedic Surgery; PCP Internal Medicine; Visit Provider Orthopaedic Surgery
PROC: 0SG3071 Fusion of Lumbosacral Joint with Autologous Tissue Substitute, Posterior Approach, Posterior Column, Open Approach (ICD-10-PCS; principal; 2019-03-07 12:15)
DX: M96.0 Pseudarthrosis after fusion or arthrodesis (principal); G47.33 Obstructive sleep apnea (adult) (pediatric); I10 Essential (primary) hypertension; E78.5 Hyperlipidemia, unspecified; F32.9 Major depressive disorder, single episode, unspecified; K21.9 Gastro-esophageal reflux disease without esophagitis; J45.909 Unspecified asthma, uncomplicated
CPT/HCPCS: 36415; 72100; 76000; 80048; 85014; 85018; 97116; 97161; 97165; 97530; 97535; C1776; C9290; J0330; J0690; J1100; J1170; J2250; J2405; J2704; J3010; J7613